=== PATIENT | female | born 1975 | race Caucasian/White ===

== ENCOUNTER → 2020-11-27 14:02 | Outpatient (CLI) | payer BC, SELFPAY ==
--- NOTE | 2020-11-28 09:16 | PC.NURSE ---
spoke with pts to relay she is covid positive.
== END ==
PROVIDERS: PCP Family Medicine; Visit Provider Family Medicine
DX: Z01.818 Encounter for other preprocedural examination (principal); Z11.52 Encounter for screening for COVID-19; U07.1 COVID-19
CPT/HCPCS: U0003

== ENCOUNTER 2022-03-17 10:24 | Emergency (ER) | payer BC, OTHER, SELFPAY ==
[2022-03-17] VITALS (13 sets, daily range): BP systolic 113–147; BP diastolic 74–100; PULSE 60–75; RESP 16–18; TEMP 36.6–36.8; O2SAT 98–99; BMI 23.3
--- NOTE | 2022-03-17 10:45 | XR_ITS ---
FINAL REPORT CLINICAL HISTORY: sob FINDINGS: SINGLE-VIEW CHEST The heart size is normal. The mediastinum is normal. The lungs are clear. There is no pneumothorax. IMPRESSION: No acute cardiopulmonary process. Reviewed, Interpreted and Dictated by Alexander Shaw III, MD Transcribed by Shakira Bacon Authenticated and [facility]
--- NOTE | 2022-03-17 10:47 | PC.NURSE ---
pt to the restroom
--- NOTE | 2022-03-17 10:51 | HMH.EDGENADL ---
ED Disposition Clinical Impression: Hypothyroidism Qualifiers: Hypothyroidism type: unspecified Qualified Code(s): E03.9 - Hypothyroidism, unspecified Disposition: Home, Self-Care Condition on Discharge: Good Instructions: DI for Hypothyroidism Referrals: Kimberly Conti [Primary Care Provider] - - Critical Care Critical Care Time: No Attestation: On 03/17/22, the high probability of a clinically significant, sudden or life threatening deterioration of the following system(s) required my full and direct attention, intervention and personal management. The time I documented below is in addition to time spent performing reported procedures but includes the following listed in this critical care notation. Medical Decision Making - Medical Records Medical records reviewed: Yes: I reviewed the patient's medical records. - Vasquez Inquiry Pt receiving controlled substance: No Vital Signs: 03/17/22 10:26 03/17/22 10:51 03/17/22 10:52 Temperature 98.3 F Temperature Source Oral Pulse Rate 70 63 Pulse Rate [Radial] 75 Respiratory Rate 16 18 18 Blood Pressure 139/93 H 125/88 Blood Pressure [Right Arm] 147/94 H Blood Pressure Mean 108 107 Blood Pressure Mean [Right Arm] 111 Blood Pressure Position [Right Arm] Sitting 02 Sat by Pulse Oximetry 98 99 98 Oxygen Delivery Method Room Air 03/17/22 11:02 03/17/22 11:12 03/17/22 11:22 Temperature Temperature Source Pulse Rate 68 69 60 Pulse Rate [Radial] Respiratory Rate 18 Blood Pressure 113/82 123/77 114/83 Blood Pressure [Right Arm] Blood Pressure Mean 96 86 95 Blood Pressure Mean [Right Arm] Blood Pressure Position [Right Arm] 02 Sat by Pulse Oximetry 99 99 98 Oxygen Delivery Method 03/17/22 11:42 03/17/22 12:02 03/17/22 12:12 Temperature Temperature Source Pulse Rate 63 75 75 Pulse Rate [Radial] Respiratory Rate 18 18 18 Blood Pressure 115/86 133/100 H 119/85 Blood Pressure [Right Arm] Blood Pressure Mean 93 111 97 Blood Pressure Mean [Right Arm] Blood Pressure Position [Right Arm] 02 Sat by Pulse Oximetry 98 98 99 Oxygen Delivery Method 03/17/22 12:22 Temperature Temperature Source Pulse Rate 73 Pulse Rate [Radial] Respiratory Rate 18 Blood Pressure 128/91 H Blood Pressure [Right Arm] Blood Pressure Mean 100 Blood Pressure Mean [Right Arm] Blood Pressure Position [Right Arm] 02 Sat by Pulse Oximetry 99 Oxygen Delivery Method - Lab Data Lab Results 03/17/22 11:01: SARS-CoV-2 (PCR) Not detected, Influenza A Untype (PCR) Not detected, Influenza Type B (PCR) Not detected 03/17/22 11:10: WBC 5.1, RBC 4.68, Hgb 14.3, Hct 43.0, MCV 91.8, MCH 30.6, MCHC 33.3, RDW 14.4, Plt Count 327, MPV 7.2 L, Neut % (Auto) 66.9, Lymph % (Auto) 23.2, [place] % (Auto) 4.6, Eos % (Auto) 3.9, Baso % (Auto) 1.4, Neut # (Auto) 3.4, Lymph # (Auto) 1.2, [place] # (Auto) 0.2, Eos # (Auto) 0.2, Baso # (Auto) 0.1 03/17/22 11:10: Sodium 136, Potassium 4.0, Chloride 101, Carbon Dioxide 29, Anion Gap 10.0, BUN 12, Creatinine 1.00, Estimated Creat Clear 70, Estimated GFR 60, Est GFR ( Amer) 72, Glucose 107 H, Calcium 9.7, Troponin I < 0.01, TSH 134.00 H Result diagrams: 03/17/22 11:10 03/17/22 11:10 Orders (Tests/Meds): ED MEDICATIONS Discontinued Medications Generic Name Dose Route Start Last Admin Trade Name Freq PRN Reason Stop Dose Admin Dexamethasone Sodium Phosphate 10 mg 03/17/22 12:17 03/17/22 12:29 Dexamethasone 4mg/Ml 5ml Mdv IV 03/17/22 12:18 10 mg ONCE ONE Administration Levothyroxine Sodium 100 mcg 03/17/22 12:46 Levothyroxine Sodium 100 Mcg Vial IV 03/17/22 12:47 ONCE STA ORDERS Category Date Time Status Free T4 (Free Thyroxine) Stat Lab 03/17/22 11:10 Received T4 (Thyroxine) Stat Lab 03/17/22 11:10 Received Thyroid Panel Stat Lab 03/17/22 11:10 Received Troponin I Q3H Lab 03/17/22 13:45 Ordered Troponin I Q3H Lab 03/17/22 16:45 Ordere
--- NOTE | 2022-03-17 11:05 | PC.NURSE ---
pt given ice water; okay's per ER and a warm blanket. Covid swab obtained and sent to lab. She has no other needs at this time. Family at BS has no needs at this time as well.
[2022-03-17 11:08] LABS: Coronavirus 19, PCR Not Detected (NotDetected); Influenza A, PCR Not Detected (NotDetected); Influenza B, PCR Not Detected (NotDetected)
[2022-03-17 11:32] LABS: Basophils # 0.1 K/mm3 (0-0.2); Basophils % 1.4 % (0.1-2.0); Eosinophils # 0.2 K/mm3 (0.0-0.4); Eosinophils % 3.9 % (0.1-12.0); Hemoglobin 14.3 g/dL (12.2-16.2); Lymphocytes # 1.2 K/mm3 (0.7-4.5); Lymphocytes % 23.2 % (10-50); Mean Corpuscular HGB Conc 33.3 g/dL (31.8-35.4); Mean Corpuscular Hemoglobin 30.6 pg (27.0-31.2); Mean Corpuscular Volume 91.8 fl (81-99); Mean Platelet Volume 7.2 fl (7.4-10.4); Monocytes # 0.2 K/mm3 (0.1-1.0); Monocytes % 4.6 % (1.7-9.3); Neutrophils # 3.4 K/mm3 (1.8-7.8); Neutrophils % 66.9 % (37.0-80.0); Platelet Count 327 K/mm3 (142-424); Red Blood Count 4.68 M/mm3 (4.20-5.40); Red Cell Distribution Width 14.4 % (11.5-17.5); White Blood Count 5.1 K/mm3 (4.8-10.8)
[2022-03-17 11:36] LABS: Chloride 101 mmol/L (98-107); Sodium 136 mmol/L (136-145)
[2022-03-17 11:39] LABS: Blood Urea Nitrogen 12 mg/dl (7-17); Calcium 9.7 mg/dl (8.4-10.2); Carbon Dioxide 29 mmol/L (22.0-30.0); Creatinine Clearance Estimated 70 mL/min (50-200); Estimated Glomerular Filt Rate 60 ml/min (>60); GFR (African American) 72 ML/MIN (>60); Glucose 107 mg/dl (74-100)
[2022-03-17 11:52] LABS: Troponin I < 0.01 ng/ml (0.00-0.034)
--- NOTE | 2022-03-17 12:00 | PC.NURSE ---
AT BEDSIDE OFFERS NO C/O AT PRESENT
--- NOTE | 2022-03-17 12:01 | PC.NURSE ---
contacted lab to check on status of tsh result, lab staff states has approx 10 minutes left
--- NOTE | 2022-03-17 12:15 | PC.NURSE ---
ER MD at speaking with patient regarding update on POC
--- NOTE | 2022-03-17 12:40 | PC.NURSE ---
Spoke with Eloy in lab regarding TSH not being resulted yet and she reports, it was so high that we have to re-run it so it will be another 15 mins. ER updated.
--- NOTE | 2022-03-17 12:54 | PC.NURSE ---
rounded on pt at this time, family at Bs, pt sitting up in bed. Updated pt that MARIA TERESA OSORIO has added additional lab work based on results we have received thus far and that I will have ER update pt soon and findings. Pt states no needs at this time. Will continue to monitor
[2022-03-17 13:20] LABS: T4 (Thyroxine) 4.2 ug/dl (5.53-11.0)
[2022-03-17 13:21] LABS: Free Thyroxine Index 1.1 ug/dL (5.93-13.13); T4 (Thyroxine) 4.1 ug/dl (5.53-11.0); Triiodothryronine (T3) Uptake 26 % (23.5-40.5)
[2022-03-17 13:22] LABS: Free T4 (Free Thyroxine) 0.39 ng/dl (0.78-2.19)
== END 2022-03-17 13:33 | disposition home or self-care (01) ==
PROVIDERS: Emergency Provider Emergency Medicine; PCP Family Medicine
DX: E03.9 Hypothyroidism, unspecified (principal); R07.89 Other chest pain; R06.02 Shortness of breath; R53.1 Weakness
CPT/HCPCS: 71045; 80048; 84436; 84439; 84443; 84479; 84484; 85025; 93005; 99284; C9803; U0003; U0005

== ENCOUNTER → 2022-11-28 13:51 | Outpatient (POV) | payer BC, OTHER, SELFPAY ==
[2022-11-28 14:48] VITALS: BP 145/89; PULSE 98; RESP 18; O2SAT 97; BMI 22.4
--- NOTE | 2022-11-28 14:51 | EXP.PAIN.OV ---
HPI Data of Consult Patient: new to practice Consult date: 11/28/22 Requesting Physician: Erika Lopez APRN Primary Care Provider: Kimberly Conti Consult Narrative Reason for consult: Right-sided low back pain History of present illness: Ms. Allen is a 47 year old female who presents today as a new patient. She is a referral from Dr. Ortiz office. Today she rates her pain a 7 out of 10. Patient states her pain is all in her low back along the right side and going into her right hip. She describes this as a aching sensation that is worse with increased activity. She states this has been going on since May 2022 and has progressively worsened patient cannot tolerate prolonged standing or walking due to her pain. It does affect her ability to perform activities of daily living such as cooking and cleaning. Patient states she is very active however she has been very limited over the last several months due to her worsening pain symptoms. Patient states it is affecting her ability to sleep and frequently she has to change positions multiple times during the night. Patient states she does have a history of sacroiliitis with her last injection approximately 5 years ago. Patient states that she did have significant relief and did not have to have any additional interventions after that last injection. Patient states that she has tried [id number]-zag-[id number] ibuprofen and Tylenol with no additional improvement. Patient does use a heating pad and hot tub therapy on a daily basis to provide temporary relief. Patient has tried oljq-pnm-stucuau topicals such as Voltaren, Aspercreme and Biofreeze with no additional relief. Patient was prescribed diclofenac in the past however she states she had been on this for some time and it made no additional difference and was worsening her GI issues so she discontinued use. Patient does states she has a history of GERD, IBS, fibromyalgia and recently was diagnosed with systemic sclerosis. Patient states she has been to rheumatology in the past. She states she has also been to physical therapy including dry needling and pool therapy with no additional improvement. 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 Patient is currently prescribed Ambien 10 mg daily and has had tramadol 50 mg 3 times a day in the past by her primary care doctor. Patient denies any side effects from this medication. Her Vasquez is [id number]. Its been reviewed and appropriate. CC: Erika Lopez APRN [facility] Disclaimer: The information contained in this section may have been updated after the patient was seen, as this information can be updated by other users. Medical History (Updated 11/28/22 @ 15:06 by Erika Lopez APRN) Anxiety Fibromyalgia GERD (gastroesophageal reflux disease) HLD (hyperlipidemia) HTN (hypertension) Hypothyroidism Migraines Vitamin D deficiency Surgical History (Updated 11/28/22 @ 14:08 by Radha Sanches RN) H/O: H/O: hysterectomy Hx of cholecystectomy Family History (Updated 11/28/22 @ 14:08 by Radha Sanches RN) Other Afib Coronary artery disease Hyperlipidemia Hypothyroidism Social History (Updated 11/28/22 @ 14:48 by Radha Sanches RN) Smoking Status: Never smoker alcohol intake: never current occupational status: other Travel in the last 8 weeks: None Review of Systems Review of Systems Review of systems:: pertinent systems reviewed and negative unless documented below Review of systems (narrative): Review of Systems: General: No recent weight changes, no fever, no sleep disturbances Respiratory: No cough, no shortness of air, no recurring pulmonary infections Cardiovascular/peripheral vascular: No chest pain, no palpitations, no edema, no shortness of breath Gastrointestinal: No new onset incontinence, normal bowel movements
== END ==
PROVIDERS: PCP Family Medicine; Visit Provider Nurse Practitioner Family
DX: M51.16 Intervertebral disc disorders with radiculopathy, lumbar region (principal); M46.1 Sacroiliitis, not elsewhere classified
CPT/HCPCS: 99202; G0463

== ENCOUNTER 2022-12-06 11:02 | Day surgery (SDC) | payer BC, OTHER, SELFPAY ==
[2022-12-06 11:19] VITALS: BP 121/77; PULSE 77; RESP 18; TEMP 36.3; O2SAT 100; BMI 22.4
[2022-12-06 11:30] VITALS: BP 118/73; PULSE 83; RESP 18; O2SAT 97
[2022-12-06 11:32] VITALS: BP 109/78; PULSE 65; RESP 18; O2SAT 100
--- NOTE | 2022-12-06 11:32 | EXP.PAIN.PRO ---
Procedure Date: 12/06/22 Time: 11:28 Anesthesiologist:: Stef Carmichael CRNA Complications:: None Pre-procedure Diagnosis:: Right sacroiliitis Post-procedure Diagnosis:: Same Indications for Procedure:: Patient is a very pleasant 47-year-old female that comes our clinic today for right sacroiliac joint injection. She has extreme point tenderness over the right sacroiliac joint. She rates her pain 7/10 Procedure Details:: Procedure: Right sacroliliac joint injection under fluoroscopy Informed consent was obtained and the risk and benefits of the procedure were explained to the patient.~ The patient was taken to the procedure room and noninvasive monitors were placed including noninvasive blood pressure cuff and pulse oximeter.~ The patient was placed prone on the procedure table.~ The~ right hip was cleansed using Betadine as a cleansing solution.~ C-arm fluorosocpy was used to view the right SI joint.~ The skin and subcutaneous tissues were anesthetized using Lidocaine 1.5% and a 25-gauge needle.~ After this, a 22-gauge spinal needle was inserted under fluoroscopic guidance into the inferior aspect of the right SI joint.~ Omnipaque dye was injected and a good spread was seen throughout the joint.~ After this, approximately 5 mL of bupivacaine 0.25% and Depo-Medrol 40 mg was incrementally injected into the sacroiliac joint.~ The patient tolerated the procedure well with no complications.~ The patient was observed in the Pain Clinic, then discharged home neurologically intact.~ Plan and Disposition:: Patient was discharged without incident.
== END 2022-12-06 11:32 | disposition home or self-care (01) ==
PROVIDERS: PCP Family Medicine; Visit Provider Nurse Anesthetist, Certified Registered
DX: M46.1 Sacroiliitis, not elsewhere classified (principal)
CPT/HCPCS: 27096; G0260; J1040

== ENCOUNTER → 2022-12-30 08:29 | Outpatient (POV) | payer BC, OTHER, SELFPAY ==
--- NOTE | 2022-12-30 08:46 | EXP.PAIN.SOA ---
[facility] Pain Management SOAP Note Subjective:: Patient is a pleasant 47-year-old female who presents today for follow-up of right SI injection on 12/06/2022. We are currently treating the patient for low back pain, degenerative disc disease of lumbar spine with lumbar radiculopathy symptoms and sacroiliitis. Today she rates her pain a 6 out of 10. She states following this injection she did not notice significant improvement until about a week and a half in where she had 2 full days of waking up with no pain in comparison prior to the injection. Patient does state that she has been walking more however she still cannot tolerate prolonged sitting or standing due to her worsening pain symptoms. She does feel like that she is back to her baseline at today's visit. Patient is currently managed with Ambien 10 mg daily and tramadol 50 mg 3 times a day from her primary care doctor. Patient denies any side effects from these medications. We have also prescribed her compounding cream that she did state provided significant relief although short-term. Her Vasquez is [phone]. Its been reviewed and appropriate. Review of Systems: General: No recent weight changes, no fever, no sleep disturbances Respiratory: No cough, no shortness of air, no recurring pulmonary infections Cardiovascular/peripheral vascular: No chest pain, no palpitations, no edema, no shortness of breath Gastrointestinal: No new onset incontinence, normal bowel movements reported Genitourinary: No new onset incontinence Musculoskeletal: Low back pain Psychiatric: [Normal mood/affect] Neurological: [Denies weakness in extremities], [denies balance issues] Objective:: Physical Exam: General: Alert and oriented x3, no acute distress, pleasant and cooperative Lungs: Respirations even and unlabored, symmetrical chest expansion Eyes: PERRL Musculoskeletal: Flexion and extension of lumbar [spine] somewhat guarded secondary to pain, [antalgic gait noted] Neurological: Speech clear, no gross sensory deficit Assessment:: Degenerative disc disease of lumbar spine with lumbar radiculopathy symptoms, sacroiliitis, low back pain Plan:: Patient continues to experience significant pain in her back with limited range of motion. I will order her physical therapy at today's visit and also prescribe tizanidine 4 mg at bedtime and provide a 1 month supply of this medication. Patient will return to clinic in 1 month for reevaluation of symptoms possible medication refill if indicated and follow-up. Patient has been instructed to contact the clinic with any concerns before the next appointment. Dr. Morales has reviewed this note and agrees with this plan of care. This note was dictated using voice recognition software and make contain errors or omissions. [facility] Disclaimer: The information contained in this section may have been updated after the patient was seen, as this information can be updated by other users. Medical History Anxiety Fibromyalgia GERD (gastroesophageal reflux disease) HLD (hyperlipidemia) HTN (hypertension) Hypothyroidism Migraines Vitamin D deficiency Surgical History H/O: H/O: hysterectomy Hx of cholecystectomy Family History Other Afib Coronary artery disease Hyperlipidemia Hypothyroidism Social History Smoking Status: Never smoker alcohol intake: never current occupational status: other Travel in the last 8 weeks: None
[2022-12-30 08:48] VITALS: BP 130/88; PULSE 99; RESP 18; O2SAT 98; BMI 22.4
== END | disposition home or self-care (01) ==
PROVIDERS: PCP Family Medicine; Visit Provider Nurse Practitioner Family
DX: M51.16 Intervertebral disc disorders with radiculopathy, lumbar region (principal); M46.1 Sacroiliitis, not elsewhere classified
CPT/HCPCS: 99212; G0463

== ENCOUNTER → 2023-02-06 08:53 | Outpatient (POV) | payer BC, OTHER, SELFPAY ==
--- NOTE | 2023-02-06 08:59 | EXP.PAIN.SOA ---
[facility] Pain Management SOAP Note Subjective:: Patient is a pleasant 47-year-old female who presents today for follow-up.? We are currently treating the patient for low back pain, degenerative disc disease of lumbar spine with lumbar radiculopathy symptoms and sacroiliitis.? Today she rates her pain a 3 out of 10.? She states that her pain continues to be at her low back however the last couple of weeks she has been experiencing worsening neck pain. She does describe this as a aching sensation that is worse with increased activity. She does stay very tense in her shoulders and also has a history of chronic migraines. She states that she does take injections for her migraines that does provide additional relief. Patient does state that her pain interferes with her ability perform activities of daily living such as cooking and cleaning. Patient is currently in physical therapy and does believe this is helping with some of her back related issues. Patient denies any previous cervical imaging and states that she has not gotten any additional imaging of her lumbar spine aside from the previous x-ray. Patient is currently managed with Ambien 10 mg daily and tramadol 50 mg 3 times a day from her primary care doctor.? Patient denies any side effects from these medications.? We did prescribe the patient tizanidine at her last visit however she states it did make her feel queasy and sick to her stomach and discontinued this medication. She does state that she is scheduled for a visit to the sleep doctor for possible sleep apnea this week. We have also prescribed her compounding cream that she did help additionally.? Her Vasquez is [id number].? Its been reviewed and appropriate. Review of Systems: General: No recent weight changes, no fever, no sleep disturbances Respiratory: No cough, no shortness of air, no recurring pulmonary infections Cardiovascular/peripheral vascular: No chest pain, no palpitations,? no edema, no shortness of breath Gastrointestinal: No new onset incontinence, normal bowel movements reported Genitourinary: No new onset incontinence Musculoskeletal: Neck and shoulder pain Psychiatric: [Normal mood/affect] Neurological: [Denies weakness in extremities], [denies balance issues] Objective:: Physical Exam: General: Alert and oriented x3, no acute distress, pleasant and cooperative Lungs: Respirations even and unlabored, symmetrical chest expansion Eyes: PERRL Musculoskeletal: Flexion and extension of cervical [spine] somewhat guarded secondary to pain, [antalgic gait noted] extreme point tenderness noted at bilateral cervical paraspinous and bilateral trapezius muscles Neurological: Speech clear, no gross sensory deficit Assessment:: Degenerative disc disease of lumbar spine with lumbar radiculopathy symptoms, low back pain, sacroiliitis, neck pain with cervical radiculopathy symptoms, myofascial pain of bilateral cervical paraspinous and bilateral trapezius muscles Plan:: Patient is experiencing significant pain in her neck with extreme point tenderness along her bilateral cervical paraspinous and bilateral trapezius muscles. I have discussed with the patient that she may benefit from trigger point injections at these locations. Risk and benefits were discussed with the patient and she would like to proceed forward with this plan of care. We will schedule the patient for trigger point injections of her bilateral cervical paraspinous and bilateral trapezius. I will also order lumbar MRI imaging without contrast. Patient has been instructed to contact the clinic with any concerns before the next appointment. Dr. Morales has reviewed this note and agrees with this plan of care. This note was dictated using voice recognition software and make contain errors or omissions. [facility] Disclaimer: The information contained in this section may have been updated after the patient was seen, as this information can be updated by other users. Medical History (System 0
[2023-02-06 09:27] VITALS: BP 149/91; PULSE 84; RESP 18; O2SAT 98; BMI 22.4
== END ==
PROVIDERS: PCP Family Medicine; Visit Provider Nurse Practitioner Family
DX: M51.16 Intervertebral disc disorders with radiculopathy, lumbar region (principal); M50.10 Cervical disc disorder with radiculopathy, unspecified cervical region; M46.1 Sacroiliitis, not elsewhere classified; M79.18 Myalgia, other site
CPT/HCPCS: 99212; G0463

== ENCOUNTER 2023-02-14 08:58 | Day surgery (SDC) | payer BC, OTHER, SELFPAY ==
[2023-02-14 09:07] VITALS: BP 136/86; PULSE 91; RESP 16; TEMP 36.2; O2SAT 98; BMI 21.6
[2023-02-14 09:24] VITALS: BP 133/86; PULSE 72; RESP 16; O2SAT 98
--- NOTE | 2023-02-14 09:31 | P.PCN_ITS ---
Procedure Date: 02/14/23 Time: 09:00 Anesthesiologist:: Stef Carmichael CRNA Complications:: None Pre-procedure Diagnosis:: Myofascial pain bilateral trapezius muscle. Post-procedure Diagnosis:: Same. Indications for Procedure:: Patient is a pleasant 47-year-old female comes our clinic today for bilateral trapezius trigger point injections. Patient complains of tightness and aching across the bilateral trapezius muscles. She rates her pain 7/10. Patient discussed with me this morning regarding her low back pain that she describes as constant, dull, aching. Patient is scheduled for lumbar MRI on 02/16/2023. Patient had bilateral sacroiliac joint injections 2 months ago. She reports leaving the office after the procedure with no pain. However, after the local anesthesia wore off her pain returned in its entirety. I discussed in detail with her risk and benefits of repeating the bilateral sacroiliac joint injections. She wishes to proceed. Procedure Details:: Details of the procedure explained to the patient. The patient taken procedure room placed in the sitting position. The area over the bilateral trapezius muscle was cleansed using chlorhexidine as a cleansing solution. Using a 25- gauge needle 2 separate injections were given into the right trapezius muscle after negative aspiration. 3 cc of a solution containing 0.25% Marcaine +1% lidocaine and 40 mg of Depo-Medrol was injected into each area. The same pro cedure was carried out over the left trapezius muscle. Patient tolerated procedure without difficulty. There are no complications. Plan and Disposition:: Patient was discharged without incident.
== END 2023-02-14 09:24 | disposition home or self-care (01) ==
LOC: SC.PAINP 08:59
PROVIDERS: PCP Family Medicine; Visit Provider Nurse Anesthetist, Certified Registered
DX: M79.18 Myalgia, other site (principal)
CPT/HCPCS: 20552; J1040

== ENCOUNTER → 2023-02-16 14:04 | Outpatient (CLI) | payer BC, OTHER, SELFPAY ==
--- NOTE | 2023-02-16 14:06 | MR_ITS ---
FINAL REPORT CLINICAL HISTORY: CHRONIC LBP DOWN RIGHT LEG SINCE MAY 2022 FINDINGS: Multiplanar MR imaging of the lumbar spine was performed without contrast. On the sagittal T2-weighted images, there is abnormal decreased signal at L4-5. The vertebrae are of normal height. The vertebral alignment is normal. L1-2: There is no significant canal stenosis or neural foraminal narrowing. L2-3: There is no significant canal stenosis or neural foraminal narrowing. L3-4: There is no significant canal stenosis or neural foraminal narrowing. L4-5: Mild diffuse disc bulge is present with mild bilateral neural foraminal narrowing, right greater than left. L5-S1: There is no significant canal stenosis or neural foraminal narrowing. IMPRESSION: Diffuse disc bulge at L4-5 with mild bilateral neural foraminal narrowing. Reviewed, Interpreted and Dictated by Ko Dumont MD Transcribed by Shakira Bacon Authenticated and [facility]
== END ==
PROVIDERS: PCP Family Medicine; Visit Provider Nurse Practitioner Family
DX: M54.50 Low back pain, unspecified (principal)
CPT/HCPCS: 72148; 76376

== ENCOUNTER 2023-02-21 13:23 | Day surgery (SDC) | payer BC, OTHER, SELFPAY ==
[2023-02-21 13:41] VITALS: BP 115/73; PULSE 52; RESP 18; TEMP 36.4; O2SAT 97; BMI 21.6
[2023-02-21 13:55] VITALS: BP 139/83; PULSE 78; RESP 18; O2SAT 99
[2023-02-21 13:56] VITALS: BP 139/83; PULSE 78; RESP 18; O2SAT 99
[2023-02-21 14:10] VITALS: BP 139/88; PULSE 66; RESP 18; O2SAT 97
--- NOTE | 2023-02-21 14:14 | P.PCN_ITS ---
Procedure Date: 02/21/23 Time: 14:00 Anesthesiologist:: Stef Carmichael CRNA Complications:: None Pre-procedure Diagnosis:: Bilateral sacroiliitis. Degenerative disc disease multiple levels. Lumbar radiculopathy. Disc bulge with foraminal narrowing bilaterally L4-5. Post-procedure Diagnosis:: Same. Indications for Procedure:: Patient returns for a second round of bilateral sacroiliac joint injections. She received 30% improvement in her overall low back pain as well as bilateral hip and leg radicular symptoms with her first round of bilateral sacroiliac joint injections. I think is reasonable to try another round of bilateral sacroiliac joint injections. She does have point tenderness over the bilateral sacroiliac joints. I discussed in detail with the patient regarding her pain. Her MRI from 02/17/2023 reveals diffuse disc bulge L4-5 with bilateral neuroforaminal narrowing right greater than left. Patient's pain pattern is low lumbar with right greater than left radicular symptoms. Patient states pain increases significantly when sitting for any length of time. Ambulating does not render any excess pain. I discussed in detail with her regarding lumbar epidural steroid injection at the L4-5 level. This could bring her some significant improvement if in fact she does not receive improvement today from the bilateral sacroiliac joint injections. We will set the patient up for lumbar epidural steroid injection in the near future. If in fact it is needed. Procedure Details:: Procedure: Bilateral sacroiliac joint injections under fluoroscopy Informed consent was obtained and the risks and benefits of the procedure were explained to the patient.~ The patient was taken to the procedure room and noninvasive monitors were placed including a noninvasive blood pressure cuff and pulse oximeter.~ The patient was placed prone on the procedure table. Both hips were cleansed using Betadine as a cleansing solution. C-arm fluoroscopy was used to view the right sacroiliac joint.~ The skin and subcutaneous tissues were anesthetized using lidocaine 1.5% and a 25-gauge needle.~ After this, a 22-gauge spinal needle was inserted under fluoroscopic guidance into the inferior aspect of the right sacroiliac joint.~ Omnipaque dye was injected and good spread was seen throughout the joint.~ After this, approximately 5 mL of bupivacaine, 0.25% and Depo-Medrol, 40 mg was incrementally injected into the right sacroiliac joint. We then moved to the left sacroiliac joint.~ The skin and subcutaneous tissues were anesthetized using lidocaine 1.5% and a 25-gauge needle.~ After this, a 22- gauge spinal needle was inserted under fluoroscopic guidance into the inferior aspect of the left sacroiliac joint.~ Omnipaque dye was injected and good spread was seen throughout the joint. After this, approximately 5 mL of bupivacaine, 0.25% and Depo-Medrol, 40 mg was incrementally injected into the left sacroiliac joint.~ The patient tolerated the procedure well with no complications. The patient was observed in the Pain Clinic and then was discharged home neurologically intact. Plan and Disposition:: Patient was discharged without incident.
== END 2023-02-21 14:10 | disposition home or self-care (01) ==
LOC: SC.PAINP 13:27
PROVIDERS: PCP Family Medicine; Visit Provider Nurse Anesthetist, Certified Registered
DX: M46.1 Sacroiliitis, not elsewhere classified (principal); M51.16 Intervertebral disc disorders with radiculopathy, lumbar region
CPT/HCPCS: 27096; G0260; J1040

== ENCOUNTER 2023-03-07 14:01 | Day surgery (SDC) | payer BC, OTHER, SELFPAY ==
[2023-03-07 14:20] VITALS: BP 111/71; PULSE 76; RESP 18; TEMP 36.3; O2SAT 100; BMI 21.6
--- NOTE | 2023-03-07 14:33 | EXP.PAIN.PRO ---
Procedure Date: 03/07/23 Time: 14:30 Anesthesiologist:: Stef Carmichael CRNA Complications:: None Pre-procedure Diagnosis:: Degenerative disc lumbar spine multilevels. Lumbar radiculopathy. Disc bulge with foraminal narrowing bilaterally L4-5. Post-procedure Diagnosis:: Same. Indications for Procedure:: Patient is a pleasant 48-year-old female comes our clinic today for lumbar epidural steroid injection at L4-5 level. Patient has had trigger point injections in the lumbar paraspinous muscles as well as bilateral sacroiliac joint injections. Neither injection rendered much relief. I discussed in detail with her today regarding the lumbar epidural steroid injection and what to expect. She wishes to proceed. She rates her pain 7/10. She describes her low back pain as well as bilateral hip pain as constant, dull, aching. Procedure Details:: Procedure: Lumbar epidural steroid injection under fluoroscopy Informed consent was obtained and the risks and benefits of the procedure were explained to the patient. The patient was taken to the procedure room and noninvasive monitors placed, including noninvasive blood pressure cuff and pulse oximeter. The back was viewed using C-arm Fluoroscopy and prepped using Chloraprep as a cleansing solution and the L4-L5 interspace was palpated. Skin and subcutaneous tissues were anesthetized using lidocaine 1.5% and a 25-gauge needle. After this, an 18-gauge Touhy epidural needle was placed into the L4-L5 interspace and advanced using fluoroscopic guidance and loss of resistance to air until the epidural space was encountered. After confirmation of needle placement in the epidural space, with dye, a solution containing normal saline, 3 mL and Depo-Medrol 80 mg were incrementally injected into the lumbar epidural space. The patient tolerated the procedure well with no complications. The patient was observed in the Pain Clinic and then discharged home neurologically intact. Plan and Disposition:: Patient was discharged without incident.
[2023-03-07 14:35] VITALS: BP 129/77; PULSE 70; RESP 18; O2SAT 99
[2023-03-07 14:37] VITALS: BP 129/77; PULSE 70; RESP 18; O2SAT 99
[2023-03-07 14:40] VITALS: BP 117/74; PULSE 67; RESP 18; O2SAT 100
== END 2023-03-07 14:40 | disposition home or self-care (01) ==
PROVIDERS: PCP Family Medicine; Visit Provider Nurse Anesthetist, Certified Registered
DX: M51.16 Intervertebral disc disorders with radiculopathy, lumbar region (principal)
CPT/HCPCS: 62323; J1040

== ENCOUNTER 2023-03-16 16:30 | Outpatient (RCR) | payer BC, OTHER, SELFPAY ==
--- NOTE | 2023-01-06 12:12 | HMH.PTOPEV ---
PT Outpatient Evaluation Rehab PT Outpatient Evaluation Start: 01/06/23 11:36 Freq: Status: Active Protocol: Document 01/06/23 11:36 RIAZ (Rec: 01/06/23 12:12 RIAZ [id number]) E-signed By Luis Loomis, PT Outpatient Therapy Subjective History Subjective History Patient is a 47 year old female presenting to outpatient PT with reports of chronic LBP with most recent exacerbation starting approx 1 month ago of insidious onset. Patient reports hx of fibromyalgia. Multiple episodes of PT previously that provided minimal relief. Intermittent RLE radicular symptoms noted. Comorbidities include hx of scleroderma, hypothyroidism, migraines, HL and reny. Chief Complaint Pain,Stiff Symptom Type Ache Symptoms Relieved By Rest/Positioning,Activity Prior Functional Limitations None Current Functional Limitations Lifting,Housework,Sleeping, Standing,Sitting,Squatting, Recreation Activity,Walking, Bending/Stooping Symptom Description Intermittent Level of pain today (0-10) 5 Pain scale - at its best (0-10) 0 Pain scale - at its worst (0-10) 7 Lumbopelvic Eval Posture Thoracic Spine Posture Standing Position Neutral Lumbar Spine Posture Standing Position Neutral Assistive device Assistive Devices None / NA Palapation tenderness right Lumbar/Sacral Palpation Findings Tenderness Lumbar/Sacral Palpation Overall Comment R SIJ 3/4 Accessory Movement S1 right Range of Motion Lumbar Spine Active Flexion Range of WNL Motion (degrees) Lumbar Spine Active Extension Range of 21 pain Motion (degrees) Left Lumbar Spine Lateral Flexion Active 15 Range of Motion (degrees) Right Lumbar Spine Lateral Flexion 12 Active Range of Motion (degrees) Lumbar Spine ROM Limitations Soft Tissue Tightness Manual Muscle Test Bilateral Knee Extension Strength Grade 4 Good Knee Flexion Strength Grade 4 Good Hip Flexion Strength Grade 4 Good Extensor Hallucis Longus Strength Grade 4 Good Ankle Dorsiflexion Strength Grade 4 Good Gastronemius/Soleus Strength Grade 4 Good Altered Sensation Right LE Dermatome Level S1 Comment ache Special Tests Hip Stef (ALMA) Test Positive Left,Positive Right
--- NOTE | 2023-02-08 16:00 | HMH.RHREAS ---
Rehab Reassessment Rehab OP Re-assessment Start: 02/08/23 15:49 Freq: Status: Active Protocol: Document 02/08/23 15:55 RIAZ (Rec: 02/08/23 16:00 RIAZ [id number]) E-signed By Luis Loomis, PT Rehab Re-assessment Subjective Subjective Patient reports 30% improvement since start of care. Objective Objective Notes AROM: WFL MMT: 4+/5 BLE grossly Pain: 3/10 today; 6/10 at worst over past week Walking/sitting tolerance: 30 min Assessment Progress Assessment Progressing as Expected Assessment Notes Compliance noted with HEP. Overall decreased F,I and D of symptoms noted. Persistent difficulty and inc symptoms with prolonged sitting, walking, bending and lifting. Patient would benenfit from continuing with skilled PT services in order to address these functional limitations. Patient goals met STG 2 Goals Not Met All others Revised Goals NA Plan Plan Continue with current POC. Frequency of Therapy 2x/week Duration of therapy 4 weeks Time and Billing Re-Eval Time 16 Re-Eval Billing Units 1 PHYSICIAN CERTIFICATION: I certify the specified therapy services for Ramandeep Allen are required, authorized, and reviewed every 30 days.
== END 2023-03-16 16:35 | disposition home or self-care (01) ==
LOC: PT 16:30
PROVIDERS: PCP Family Medicine; Visit Provider Nurse Practitioner Family
DX: M54.50 Low back pain, unspecified (principal)
CPT/HCPCS: 20561; 97010; 97014; 97110; 97140; 97163; 97164; 97530; G0283

== ENCOUNTER → 2023-03-22 10:27 | Outpatient (POV) | payer BC, OTHER, SELFPAY ==
[2023-03-22 10:32] VITALS: BP 121/81; PULSE 86; RESP 20; BMI 21.6
--- NOTE | 2023-03-22 10:32 | EXP.PAIN.SOA ---
[facility] Pain Management SOAP Note Subjective:: Patient is a pleasant 48-year-old female who presents today for follow-up of lumbar epidural steroid injection L4-L5 on 03/07/2023. We are currently treating the patient for low back pain, degenerative disc disease of lumbar spine with lumbar radiculopathy symptoms, fibromyalgia and sacroiliitis. Today she rates her pain a 5 out of 10. She states she had no additional relief following the epidural and feels like her pain may even be worse. She does state that she has been having some mid back pain that is occurred approximately 3 times when she was doing certain movements or stretching and she denies any radiating symptoms. She continues to have pain in her low back and her right hip down to her right foot. She describes this as a aching sensation that is worse with increased activity. This pain has been going on for more than 9 months and has progressively worsened. It does affect her ability to perform activities of daily living such as cooking and cleaning. She does state the pain interferes with her sleeping as well as the ability to be active. We have tried SI injections and now this epidural that none have really provided significant relief. She has tried [id number] ibuprofen and Tylenol with no additional improvement. She continues to use heating pad and hot tub therapy on a daily basis to provide temporary relief. Patient has tried multiple topicals as well as diclofenac with no additional relief. She was prescribed compounding cream however it had a very sticky consistency that she could not tolerate as well. She has a history of GERD, IBS, fibromyalgia and systemic sclerosis. She does state that she recently was diagnosed with sleep apnea and is trying to adjust to using a CPAP machine at night she has tried physical therapy with no additional relief. Patient is currently prescribed Ambien 10 mg daily and has had tramadol 50 mg 3 times a day in the past by her primary care doctor. Patient denies any side effects from this medication. She states that she has also tried CBD products that did help her sleep a little better. Her Vasquez is [id number]. Its been reviewed and appropriate. Review of Systems: General: No recent weight changes, no fever, no sleep disturbances Respiratory: No cough, no shortness of air, no recurring pulmonary infections Cardiovascular/peripheral vascular: No chest pain, no palpitations, no edema, no shortness of breath Gastrointestinal: No new onset incontinence, normal bowel movements reported Genitourinary: No new onset incontinence Musculoskeletal: Low back pain, mid back pain Psychiatric: [Normal mood/affect] Neurological: [Denies weakness in extremities], [denies balance issues] Objective:: Physical Exam: General: Alert and oriented x3, no acute distress, pleasant and cooperative Lungs: Respirations even and unlabored, symmetrical chest expansion Eyes: PERRL Musculoskeletal: Flexion and extension of lumbar [spine] somewhat guarded secondary to pain, [antalgic gait noted] positive right leg raise, diminished Achilles reflex and decreased sensation to touch along right leg Neurological: Speech clear, no gross sensory deficit Assessment:: Low back pain, degenerative disc disease of lumbar spine with lumbar radiculopathy symptoms, sacroiliitis, mid back pain, fibromyalgia Plan:: Patient is experiencing significant pain in her low back with limited range of motion and radiating symptoms down her right leg. I have discussed with the patient that she may benefit from a right transforaminal epidural steroid injection. Risk and benefits were explained to the patient and she would like to proceed forward with this plan of care. Patient did have diminished Achilles reflex along the right side and decreased sensation to light touch along with a positive right leg raise. Patient has tried nwnp-ksk-gjxqkie medications, heat and ice, topicals, physical therapy, at home stretching and e
== END | disposition home or self-care (01) ==
PROVIDERS: PCP Family Medicine; Visit Provider Nurse Practitioner Family
DX: M51.16 Intervertebral disc disorders with radiculopathy, lumbar region (principal); M46.1 Sacroiliitis, not elsewhere classified; M54.6 Pain in thoracic spine; M79.7 Fibromyalgia
CPT/HCPCS: 99212; G0463

== ENCOUNTER → 2023-03-22 11:06 | Outpatient (CLI) | payer BC, OTHER, SELFPAY ==
--- NOTE | 2023-03-22 11:11 | XR_ITS ---
FINAL REPORT CLINICAL HISTORY: MID BACK PAIN FINDINGS: THORACIC SPINE Three views demonstrate no acute fracture. The disc spaces are well preserved. There is no malalignment. IMPRESSION: No acute process. Reviewed, Interpreted and Dictated by Harry Fofana MD Transcribed by Rogerio Ace Authenticated and [facility]
== END ==
PROVIDERS: PCP Family Medicine; Visit Provider Nurse Practitioner Family
DX: M54.6 Pain in thoracic spine (principal)
CPT/HCPCS: 72072

== ENCOUNTER → 2023-03-27 08:39 | Outpatient (CLI) | payer BC, OTHER, SELFPAY ==
[2023-03-27 10:31] LABS: Thyroid Stimulating Hormone 0.09 uIU/mL (0.465-4.68)
== END ==
PROVIDERS: PCP Family Medicine; Visit Provider Internal Medicine
DX: E03.8 Other specified hypothyroidism (principal); E06.3 Autoimmune thyroiditis
CPT/HCPCS: 36415; 84439; 84443

== ENCOUNTER → 2023-03-29 07:49 | Outpatient (CLI) | payer BC, OTHER, SELFPAY ==
--- NOTE | 2023-03-29 07:49 | MM_ITS ---
PROCEDURE INFORMATION: Exam: MG Bilateral Screening 3D Mammography Exam date and time: 03/29/2023 7:58 AM Age: 48 years old Clinical indication: Screening examination; No personal or family history of breast cancer TECHNIQUE: Imaging protocol: Bilateral Screening tomosynthesis and 2D mammography including computer-aided detection (CAD) when performed. COMPARISON: No relevant prior studies available. FINDINGS: MAMMOGRAPHY: Breast composition: The breasts are heterogeneously dense, which may obscure small masses. Mass: None. Architectural distortion: None. Calcifications: No suspicious calcifications. Asymmetric density: None. Skin thickening: None. Axillary adenopathy: None. IMPRESSION: No mammographic evidence of malignancy. Annual screening is recommended unless otherwise clinically indicated. ASSESSMENT: BI-RADS Category 1: Negative
== END ==
PROVIDERS: PCP Family Medicine; Visit Provider Obstetrics & Gynecology
DX: Z12.31 Encounter for screening mammogram for malignant neoplasm of breast (principal)
CPT/HCPCS: 77063; 77067

== ENCOUNTER 2023-04-07 13:06 | Day surgery (SDC) | payer BC, OTHER, SELFPAY ==
[2023-04-07 13:24] VITALS: BP 138/83; PULSE 84; RESP 18; TEMP 36.6; O2SAT 100; BMI 21.6
[2023-04-07 13:38] VITALS: BP 138/89; PULSE 84; RESP 18; O2SAT 98
[2023-04-07 13:39] VITALS: BP 138/89; PULSE 84; RESP 18; O2SAT 98
--- NOTE | 2023-04-07 13:44 | P.PCN_ITS ---
Procedure Date: 04/07/23 Time: 13:45 Anesthesiologist:: Stef Carmichael CRNA Complications:: None Pre-procedure Diagnosis:: Degenerative disc lumbar spine multilevels. Lumbar radiculopathy. Lumbar disc bulge L4-5. Thoracic back pain. Post-procedure Diagnosis:: Same. Indications for Procedure:: Patient is a very pleasant 48-year-old female comes our clinic today for right L4-5, L5-S1 transforaminal epidural steroid injection. Patient has had right sacroiliac joint injection. Intralaminar epidural steroid injection at the L4-5 level. Patient continues to report right hip and leg radicular symptoms to the foot. Also, low thoracic back pain she describes as constant, dull, aching. Patient requesting MRI of thoracic spine. Procedure Details:: Details of the procedure were explained to the patient. The patient was taken the procedure room placed in the prone position. The area of the lumbar spine was cleansed using chlorhexidine as a cleansing solution. At this time using fluoroscopy guidance markers were placed on the right lateral border of the L4 and L5 vertebral body. The skin and subcutaneous tissue was anesthetized using 1% lidocaine and 25-gauge needle. At this time using a 22-gauge 3-1/2 inch spinal needle the right upper one third of the L4-5 foramen was accessed. The same was done at the right L5-S1 foramen. Needle positions were confirmed and a lateral view using fluoroscopy and contrast dye. At this time 1 cc of 1% lidocaine +20 mg of Depo-Medrol was injected at each level after negative aspiration. [place] were removed. Band-Aid applied. Patient tolerated the procedure without difficulty. There are no complications. Plan and Disposition:: Patient was discharged without incident.
[2023-04-07 13:47] VITALS: BP 145/91; PULSE 71; RESP 16; O2SAT 100
== END 2023-04-07 13:47 | disposition home or self-care (01) ==
PROVIDERS: PCP Family Medicine; Visit Provider Nurse Anesthetist, Certified Registered
DX: M51.16 Intervertebral disc disorders with radiculopathy, lumbar region (principal); M54.6 Pain in thoracic spine
CPT/HCPCS: 64483; 64484; J1030

== ENCOUNTER → 2023-04-17 14:30 | Outpatient (POV) | payer BC, OTHER, SELFPAY ==
--- NOTE | 2023-04-17 14:41 | EXP.PAIN.SOA ---
[facility] Pain Management SOAP Note Subjective:: Patient is a pleasant 48-year-old female who presents today for follow-up of right transforaminal epidural steroid injection L4-L5 and L5-S1 on 04/07/2023. We are currently treating the patient for low back pain, degenerative disc disease of lumbar spine with lumbar radiculopathy symptoms, fibromyalgia and sacroiliitis. Today she rates her pain a 8 out of 10. She states that she only noticed approximately 30 minutes of relief following the last injection and that it came immediately back to baseline. She continues to state that she has mid back pain that is tender just with simple touching. She continues to have mid to low back pain that she describes as an aching, throbbing sensation that is worse with increased activity. It does limit her ability to move around or even simple ambulation. Patient does state that she continues to do at home exercise and stretching and walk daily however it is limited by how bad her pain is. She has tried [id number]-[id number] ibuprofen and Tylenol with no additional improvement. She continues to use heating pad and hot tub therapy on a daily basis to provide temporary relief. Patient has used topicals along with compounding cream however stopped using the medicated cream due to the sticky consistency. She has a history of GERD, IBS, fibromyalgia and systemic sclerosis. She does state that she feels like a lot of her pain has to do with her fibromyalgia. Patient was recently diagnosed with sleep apnea and prescribed a CPAP machine. Patient is currently prescribed Ambien 10 mg daily and has had tramadol 50 mg 3 times a day in the past by her primary care doctor. Patient denies any side effects from this medication. At our last visit we did prescribe her methocarbamol 500 mg twice a day and she states this did seem to provide improvement. She states that she does typically only take it at night because it did still make her little bit sleepy. We also referred her to neurosurgery at our last visit however she states she has not heard from this office. Her Vasquez has been reviewed and is appropriate. Review of Systems: General: No recent weight changes, no fever, no sleep disturbances Respiratory: No cough, no shortness of air, no recurring pulmonary infections Cardiovascular/peripheral vascular: No chest pain, no palpitations, no edema, no shortness of breath Gastrointestinal: No new onset incontinence, normal bowel movements reported Genitourinary: No new onset incontinence Musculoskeletal: mid back pain Psychiatric: [Normal mood/affect] Neurological: [Denies weakness in extremities], [denies balance issues] Objective:: Physical Exam: General: Alert and oriented x3, no acute distress, pleasant and cooperative Lungs: Respirations even and unlabored, symmetrical chest expansion Eyes: PERRL Musculoskeletal: Flexion and extension of thoracic [spine] somewhat guarded secondary to pain, [antalgic gait noted] extreme point tenderness noted approximately T7-T9 area Neurological: Speech clear, no gross sensory deficit Assessment:: Low back pain, degenerative disc disease of lumbar spine with lumbar radiculopathy symptoms, fibromyalgia, sacroiliitis Plan:: Patient continues to experience significant pain in her mid back with extreme point tenderness upon palpation. I will order MRI without contrast of her thoracic spine. I will also refill her methocarbamol 500 mg at bedtime and provide a 1 month supply of this medication. I will also recheck on her neurosurgery consult and discuss this at her next visit. Patient will return to clinic in 3 weeks following her imaging for reevaluation of symptoms and plan of care. Patient has been instructed to contact the clinic with any concerns before the next appointment. Dr. Morales has reviewed this note and agrees with this plan of care. This note was dictated using voice recognition software and make contain errors or omissions. [facility] Disclaimer:
[2023-04-17 15:28] VITALS: BP 125/83; PULSE 86; RESP 18; O2SAT 98; BMI 21.3
== END ==
PROVIDERS: PCP Family Medicine; Visit Provider Nurse Practitioner Family
DX: M51.16 Intervertebral disc disorders with radiculopathy, lumbar region (principal); M79.7 Fibromyalgia; M46.1 Sacroiliitis, not elsewhere classified
CPT/HCPCS: 99212; G0463

== ENCOUNTER → 2023-05-03 15:03 | Outpatient (CLI) | payer BC, OTHER, SELFPAY ==
--- NOTE | 2023-05-03 15:07 | MR_ITS ---
FINAL REPORT CLINICAL HISTORY: MID BACK PAIN FINDINGS: Multiplanar MR imaging of the thoracic spine was performed without contrast. On the sagittal T2-weighted images, disc degeneration is seen at several levels. There is no evidence of fracture. The vertebral alignment is normal. No bony mass is identified. The thoracic spinal cord has an unremarkable appearance without evidence of mass, edema or syrinx. There is no evidence of canal stenosis or cord compression. On the axial images, no focal disc protrusion is identified. There is no evidence of significant canal stenosis. No paraspinous soft tissue abnormality is seen. IMPRESSION: Multilevel disc degeneration without evidence of disc protrusion or canal stenosis. Reviewed, Interpreted and Dictated by Alexander Shaw III, MD Transcribed by Shakira Bacon Authenticated and [facility]
== END ==
PROVIDERS: PCP Family Medicine; Visit Provider Nurse Practitioner Family
DX: M54.6 Pain in thoracic spine (principal)
CPT/HCPCS: 72146

== ENCOUNTER → 2023-05-15 14:32 | Outpatient (POV) | payer BC, OTHER, SELFPAY ==
--- NOTE | 2023-05-15 14:36 | EXP.PAIN.SOA ---
[facility] Pain Management SOAP Note Subjective:: Patient is a pleasant 48-year-old female who presents today for follow-up of MRI results. We are currently treating the patient for low back pain, degenerative disc disease of lumbar spine with lumbar radiculopathy symptoms, fibromyalgia and sacroiliitis. Today she rates her pain a 6 out of 10. She states she continues to have mid to low back pain that is worse with increased ambulation. she describes it as an aching, throbbing sensation that is worse with increased activity. Patient does states she has no quality of life and that even with her fibromyalgia she feels like she should not be in this much pain. Patient does state that it interferes with her ability to perform activities of daily living. She states her pain is worse with certain movements such as bending, twisting or lifting. She does state that she continues to have even depression due to the constant pain. She has tried and failed conservative therapy such as oral medications such as Tylenol and ibuprofen along with heat and ice and topicals. Patient has recently been to neurosurgery who was recommending a lumbar medial branch block. Patient is currently managed with methocarbamol 500 mg twice a day. She denies any side effects from this medication. She states at this time she does not need any additional refills. Review of Systems: General: No recent weight changes, no fever, no sleep disturbances Respiratory: No cough, no shortness of air, no recurring pulmonary infections Cardiovascular/peripheral vascular: No chest pain, no palpitations, no edema, no shortness of breath Gastrointestinal: No new onset incontinence, normal bowel movements reported Genitourinary: No new onset incontinence Musculoskeletal: mid back pain, low back pain Psychiatric: [Normal mood/affect] Neurological: [Denies weakness in extremities], [denies balance issues] Objective:: Physical Exam: General: Alert and oriented x3, no acute distress, pleasant and cooperative Lungs: Respirations even and unlabored, symmetrical chest expansion Eyes: PERRL Musculoskeletal: Flexion and extension of lumbar [spine] somewhat guarded secondary to pain, [antalgic gait noted] positive Kemps test Neurological: Speech clear, no gross sensory deficit Assessment:: Degenerative disc disease of lumbar spine with lumbar radiculopathy symptoms, fibromyalgia, sacroiliitis, low back pain, mid back pain, lumbar facet arthropathy Plan:: Patient is experiencing significant pain in her mid to low back with limited range of motion of her lumbar spine. I have discussed with her the risk and benefits of the lumbar medial branch block. She would like to proceed forward with this plan of care. Patient is not on any blood thinners. Patient is only experiencing more pain along the right side. I have also counseled the patient in future we may look at doing a pain pump trial due to her constant pain. We will discuss this at future visits. Patient will be scheduled for a lumbar medial branch block right-sided L4-L5 and L5-S1. Patient has been instructed to contact the clinic with any concerns before the next appointment. Dr. Morales has reviewed this note and agrees with this plan of care. This note was dictated using voice recognition software and make contain errors or omissions. [facility] Disclaimer: The information contained in this section may have been updated after the patient was seen, as this information can be updated by other users. Medical History (Updated 04/17/23 @ 15:59 by Jennifer Leigh DO) Anxiety Fibromyalgia GERD (gastroesophageal reflux disease) HLD (hyperlipidemia) HTN (hypertension) Hypothyroidism Migraines Perimenopausal vasomotor symptoms Vitamin D deficiency Surgical History H/O: H/O: hysterectomy History of colonoscopy Hx of cholecystectomy [place] teeth removed Family History (Reviewed 04/17/23 @ 1
[2023-05-15 14:46] VITALS: BP 144/85; PULSE 76; RESP 18; O2SAT 99; BMI 21.6
== END ==
PROVIDERS: PCP Family Medicine; Visit Provider Nurse Practitioner Family
DX: M51.16 Intervertebral disc disorders with radiculopathy, lumbar region (principal); M79.7 Fibromyalgia; M46.1 Sacroiliitis, not elsewhere classified; M47.26 Other spondylosis with radiculopathy, lumbar region; M54.6 Pain in thoracic spine
CPT/HCPCS: 99212; G0463

== ENCOUNTER 2023-05-30 08:16 | Day surgery (SDC) | payer BC, OTHER, SELFPAY ==
[2023-05-30 08:40] VITALS: BP 126/66; PULSE 65; RESP 16; TEMP 36.3; O2SAT 100; BMI 21.6
[2023-05-30 09:03] VITALS: BP 129/89; PULSE 77; RESP 18; O2SAT 99
[2023-05-30 09:04] VITALS: BP 129/89; PULSE 77; RESP 18; O2SAT 99
[2023-05-30 09:08] VITALS: BP 125/79; PULSE 60; RESP 16; O2SAT 100
--- NOTE | 2023-05-30 09:08 | EXP.PAIN.PRO ---
Procedure Date: 05/30/23 Time: 08:50 Anesthesiologist:: Stef Carmichael CRNA Complications:: None Pre-procedure Diagnosis:: Degenerative disc disease lumbar spine multiple levels. Lumbar radiculopathy. Disc bulge L4-5. Post-procedure Diagnosis:: Same. Indications for Procedure:: Patient is a very pleasant 48-year-old female that comes our clinic today for right L4-5 and L5-S1 medial branch blocks/facet injection. Patient complains of right hip and leg radicular symptoms to the foot. Minimal back pain. Patient has tried and failed intralaminar epidural steroid injection. Transforaminal epidural steroid injection. Patient has had consultation with spine surgery. They recommend no surgery at this time. She rates her pain 7/10. Patient has difficulty with flexion, extension, left and right rotation. Difficulty with ambulation secondary to low back pain as well as right hip and leg pain. Procedure Details:: Details of the procedure explained to the patient. The patient taken to procedure room placed in the prone position on fluoroscopy table. The area of the lumbar spine was cleaned using chlorhexidine as a cleansing solution. Using fluoroscopy guidance a marker was placed over the right L4-5 as well as right L5-S1 facet joint. The skin and subcutaneous tissue was anesthetized using 1% lidocaine and a 25-gauge needle. Using fluoroscopy guidance a 3 and half inch 22-gauge spinal needle was used to access the right L4-5 and L5-S1 facet injection. 1 cc of 1% lidocaine and 10 mg of Depo-Medrol was injected at each level. The corresponding medial branch nerve at each level was blocked in the same fashion. Patient tolerated procedure without difficulty. There are no complications. Plan and Disposition:: Patient was discharged without incident.
== END 2023-05-30 09:08 | disposition home or self-care (01) ==
PROVIDERS: PCP Family Medicine; Visit Provider Nurse Anesthetist, Certified Registered
DX: M47.896 Other spondylosis, lumbar region (principal); M51.16 Intervertebral disc disorders with radiculopathy, lumbar region
CPT/HCPCS: 64493; 64494; J1040

== ENCOUNTER → 2023-06-14 10:31 | Outpatient (POV) | payer BC, OTHER, SELFPAY ==
--- OUTSIDE RECORDS SUMMARY | 2023-06-14 10:34 | XMS_ITS | Clinical Summary ---
Author Name Unknown Address [address] [place] [address] Phone Organization [facility] , [facility] Address [address] [place] [address] Phone Care Team Providers Care Fire Engine Operator Name Role Phone John OSORIO, Wilner Urban Unavailable [phone] Kimberly Conti DO Primary Care Provider [phone] Reason for Visit and Chief Complaint The Chief Complaint is: lower back pain Problems Includes: Problems addressed during this encounter and other active Problems Current Visit Onset Date Resolved Date Provider Анна hodge Status Lower Back Pain 06/25/2018 Wilner Lopez MD Act annmarie Plan of Treatment Instructions to patient Instructions for patient see pcp for bp Last Documented On 8 4:32PM ; [facility], [facility] Assessments Includes: Assessments from this encounter No Assessments Recorded Instructions Includes: Instructions from this encounter Instructions to patient Instructions for patient see pcp for bp Last Documented On 8 4:32PM ; [facility], [facility] Medical Equipment - Implanted Devices Includes: Current Devices No Medical Equipment Recorded Medications Includes: Medications discussed during this encounter and other current Medications New / Renewed during this visit Wilner Lopez MD on 06/25/2018 Naproxen 500MG Oral Tablet Provider: Cl Lopez MD 30 day supply: 60 tablet, 1 refills Diagnosis: twice a day Pharmacy: [facility]
--- OUTSIDE RECORDS SUMMARY | 2023-06-14 10:34 | XMS_ITS | Clinical Summary ---
Author Name Unknown Address [address] [place] [address] Phone Organization [facility] , [facility] Address [address] [place] [address] Phone Care Team Providers Care Barrel Raiser Helper Name Role Phone John OSORIO, Wilner Urban Unavailable [phone] Kimberly Conti DO Primary Care Provider [phone] Reason for Visit and Chief Complaint The Chief Complaint is: lower back pain Problems Includes: Problems addressed during this encounter and other active Problems Current Visit Onset Date Resolved Date Provider Анна hodge Status Lower Back Pain 06/25/2018 Wilner Lopez MD Act annmarie Plan of Treatment Urine drug screen is compliant today. ORT is low. Chief complaint lumbar spine pain which radiates right hip buttock and thigh with tingling and numbness. MRI lumbar spine showed disc bulges, neuroforaminal narrowing. Physical therapy, bedrest and Nsaids did not help above symptoms. Dr. Lopez did not recommend lumbar surgery. Schedule right SI joint injection 2 weeks. She may need a lumbar epidural injection and right L3-4-5 transforaminal epidural injection. No pain medication prescribed today return to clinic in 1 month - Last Documented On 07/03/2018 7:46PM ; [facility], [facility] Instructions to patient Instructions for patient see pcp for bp Last Documented On 8 3:24PM ; [facility], [facility] Assessments Includes: Assessments from this encounter Findings Right-sided lumbar radicular pain, right sacroiliac joint arthritis, and bilateral lumbar facet joint arthritis. - Last Documented On 07/03/2018 7:46PM ; [facility], [facility] Instructions Includes: Instructions from this encounter
--- OUTSIDE RECORDS SUMMARY | 2023-06-14 10:34 | XMS_ITS | Clinical Summary ---
Author Name Unknown Address [address] [place] [address] Phone Organization [facility] , [facility] Address [address] [place] [address] Phone Care Team Providers Care Installation Drafter Name Role Phone John OSORIO, Wilner Urban Unavailable [phone] Kimberly Conti DO Primary Care Provider [phone] Reason for Visit and Chief Complaint INJECTION Problems Includes: Problems addressed during this encounter and other active Problems All Visits Onset Date Resolved Date Provider Condition S tatus Lower Back Pain 06/25/2018 Wilner Lopez MD Act annmarie Plan of Treatment No Plan of Treatment Recorded Assessments Includes: Assessments from this encounter No Assessments Recorded Medical Equipment - Implanted Devices Includes: Current Devices No Medical Equipment Recorded Medications Includes: Medications discussed during this encounter and other current Medications Current Medications (continue as prescribed) Metoprolol Succinate ER 25MG Oral Tablet, extended-release 24 hour 06/29/2018 Provider: Kimberly Conti DO Diagnosis: Pravastatin Sodium 20MG Oral Tablet 06/25/2018 Provi enmanuel: Diagnosis: CeleXA 20MG Oral Tablet 06/25/2018 Provider: Diagnosis: Kalin
--- OUTSIDE RECORDS SUMMARY | 2023-06-14 10:34 | XMS_ITS ---
Author Name Unknown Address [address] [place] [address] Phone Organization [facility] Address [address] [place] [address] Phone Care Team Providers Care Engineering Production Worker Name Role Phone John OSORIO, Wilner Urban Unavailable [phone] Kimberly Conti DO Primary Care Provider [phone] Problems Includes: Active, inactive, and resolved Problems All Visits Onset Date Resolved Date Provider Condition S tatus Lower Back Pain 06/25/2018 Wilner Lopez MD Act annmarie Plan of Treatment Instructions to patient Instructions for patient see pcp for bp Last Documented On 8 3:24PM ; [facility] Instructions for patient see pcp for bp Last Documented On 8 4:32PM ; [facility] Assessments Includes: Assessments for all patient encounters No Assessments Recorded Instructions Includes: Instructions for all patient encounters Instructions to patient Instructions for patient see pcp for bp Last Documented On 8 3:24PM ; [facility] Instructions for patient see pcp for bp Last Documented On 8 4:32PM ; [facility], [facility] Medical Equipment - Implanted Devices Includes: Current and historical Devices No Medical Equipment Recorded Medications Includes: Current and historical Medications Current Medications (continue as prescribed)
--- OUTSIDE RECORDS SUMMARY | 2023-06-14 10:34 | XMS_ITS ---
Care Plan - [facility], [facility] Created on: June 14, 2023 Allen Ramandeep : 1975 Sex: Female Author Name Unknown Address [address] [place] [address] Phone Organization [facility] , [facility] Address [address] [place] [address] Phone Care Team Providers Care Stock Counter Name Role Phone Wilner Lopez MD Unavailable [phone] Kimberly Conti DO Primary Care Provider [phone]
--- NOTE | 2023-06-14 10:54 | EXP.PAIN.SOA ---
[facility] Pain Management SOAP Note Subjective:: Patient is a pleasant 48-year-old female who presents today for follow-up of her first lumbar medial branch block right-sided L4-L5 and L5-S1 on 05/30/2023. We are currently treating the patient for degenerative disc disease of lumbar spine with lumbar radiculopathy symptoms, fibromyalgia, sacroiliitis, lumbar facet arthropathy, lumbar spondylosis. Today she rates her pain a 4 out of 10. Patient denies any new trauma or injury. She does state that she had 100% relief lasting at least 30 minutes following this injection. She states that frequently she does get pain following each of the injections at the site and that it did seem to overshadow the improvement at that point. Patient does state today that she is back at her baseline and describes her pain as an aching, throbbing sensation that continues to remain on the right side of her low back. Patient denies any radiating symptoms into her legs. Patient does state the pain interferes with her ability perform activities of daily living such as cooking and cleaning. She does state that she is scheduled to see her piece work inspector tomorrow. Patient is currently managed with methocarbamol 500 mg twice a day as needed. Patient states she does not need any refills at this time. Her Vasquez is [phone]. Its been reviewed and appropriate. Review of Systems: General: No recent weight changes, no fever, no sleep disturbances Respiratory: No cough, no shortness of air, no recurring pulmonary infections Cardiovascular/peripheral vascular: No chest pain, no palpitations, no edema, no shortness of breath Gastrointestinal: No new onset incontinence, normal bowel movements reported Genitourinary: No new onset incontinence Musculoskeletal: Low back pain Psychiatric: [Normal mood/affect] Neurological: [Denies weakness in extremities], [denies balance issues] Objective:: Physical Exam: General: Alert and oriented x3, no acute distress, pleasant and cooperative Lungs: Respirations even and unlabored, symmetrical chest expansion Eyes: PERRL Musculoskeletal: Flexion and extension of lumbar [spine] somewhat guarded secondary to pain, [antalgic gait noted] positive Kemps test Neurological: Speech clear, no gross sensory deficit Assessment:: Degenerative disc disease of lumbar spine with lumbar facet arthropathy, lumbar spondylosis, fibromyalgia, sacroiliitis Plan:: Patient continues to have right-sided low back pain with limited range of motion. Patient had a positive Kemps test and had a successful first lumbar medial branch block providing 100% relief for a short period of time. I have discussed with the patient that she may benefit from repeat injections. Risk and benefits were explained to the patient and she would like to proceed forward with this plan of care. I have counseled the patient if she gets another successful block we will proceed forward with ordering the lumbar RFA next. Patient will be scheduled for a right lumbar medial branch block L4-L5 and L5-S1. Patient has been instructed to contact the clinic with any concerns before the next appointment. Dr. Morales has reviewed this note and agrees with this plan of care. This note was dictated using voice recognition software and make contain errors or omissions. [facility] Disclaimer: The information contained in this section may have been updated after the patient was seen, as this information can be updated by other users. Medical History Anxiety Fibromyalgia GERD (gastroesophageal reflux disease) HLD (hyperlipidemia) HTN (hypertension) Hypothyroidism Migraines Perimenopausal vasomotor symptoms Vitamin D deficiency Surgical History H/O: H/O: hysterectomy History of colonoscopy Hx of cholecystectomy [place] teeth removed Family History (Reviewed 04/17/23 @ 15:56 by Jennifer Dia
[2023-06-14 12:47] VITALS: BP 130/86; PULSE 87; RESP 18; O2SAT 98; BMI 21.3
== END | disposition home or self-care (01) ==
PROVIDERS: PCP Family Medicine; Visit Provider Nurse Practitioner Family
DX: M51.36 Other intervertebral disc degeneration, lumbar region (principal); M47.816 Spondylosis without myelopathy or radiculopathy, lumbar region; M79.7 Fibromyalgia; M46.1 Sacroiliitis, not elsewhere classified
CPT/HCPCS: 99212; G0463

== ENCOUNTER 2023-07-18 13:38 | Day surgery (SDC) | payer BC, OTHER, SELFPAY ==
[2023-07-18 13:52] VITALS: BP 128/81; PULSE 79; RESP 16; TEMP 36.3; O2SAT 94; BMI 20.7
[2023-07-18 14:06] VITALS: BP 135/82; PULSE 74; O2SAT 97
[2023-07-18 14:08] VITALS: BP 135/82; PULSE 84; O2SAT 97
[2023-07-18 14:14] VITALS: BP 106/78; PULSE 62; RESP 16; O2SAT 94
--- NOTE | 2023-07-18 14:14 | EXP.PAIN.PRO ---
Procedure Date: 07/18/23 Time: 14:15 Anesthesiologist:: Stef Carmichael CRNA Complications:: None Pre-procedure Diagnosis:: Degenerative disc lumbar spine multilevels. Lumbar radiculopathy. Lumbar spondylosis. Multilevel lumbar facet arthropathy. Fibromyalgia. Post-procedure Diagnosis:: Same. Indications for Procedure:: Patient is a pleasant 48-year-old female that comes our clinic today for right L4-5, L5-S1 medial branch blocks/facet injection. Patient requesting no steroids. Block will be given with lidocaine only. She right low lumbar back pain. Some radicular symptoms into the right posterior hip. She rates her pain 6/10. Procedure Details:: Details of the procedure explained to the patient. Patient taken procedure room placed in prone position on fluoroscopy table. The area over the lumbar spine was cleansed using chlorhexidine as a cleansing solution. Using a 22-gauge 3 inch needle the right L4-5 and L5-S1 facet joint was accessed. Each joint was injected with 1 cc of 1% lidocaine. The medial branch nerve at each level was blocked as well with 0.5 mL of lidocaine. Patient tolerated procedure without difficulty. There are no complications. Plan and Disposition:: Patient was discharged without incident.
== END 2023-07-18 14:14 | disposition home or self-care (01) ==
PROVIDERS: PCP Family Medicine; Visit Provider Nurse Anesthetist, Certified Registered
DX: M51.16 Intervertebral disc disorders with radiculopathy, lumbar region (principal); M79.7 Fibromyalgia; M47.896 Other spondylosis, lumbar region
CPT/HCPCS: 64493; 64494

== ENCOUNTER → 2023-08-03 14:29 | Outpatient (POV) | payer BC, OTHER, SELFPAY ==
[2023-08-03 14:30] VITALS: BP 114/84; PULSE 92; RESP 18; O2SAT 100; BMI 20.7
--- NOTE | 2023-08-03 15:06 | EXP.PAIN.SOA ---
[facility] Pain Management SOAP Note Subjective:: Patient is a pleasant 48-year-old female who presents today for follow-up of her second lumbar medial branch block right-sided L4-L5 and L5-S1 on 05/30/2023. We are currently treating the patient for degenerative disc disease of lumbar spine with lumbar radiculopathy symptoms, fibromyalgia, sacroiliitis, lumbar facet arthropathy, lumbar spondylosis. Today she rates her pain a 4 out of 10. Patient denies any new trauma or injury. She states that she did have approximately 90% improvement following this injection however it only lasted for approximately 30 minutes. Patient does state that she slowly returned back to her baseline. Patient states she continues to deal with chronic pain on a daily basis throughout multiple joints including her low back. Patient does state that typically it is flared up by her fibromyalgia. Patient did previously have 100% improvement with her first medial branch block however still short-lived. At her last visit we did discuss the lumbar RFA. She states she would like to proceed forward with this plan of care. Patient states that her chronic pain does interfere with her daily life and is unable to perform activities of daily living such as cooking and cleaning. Patient states that she has gone to part-time work due to the pain and constant doctor visits. Patient states she has been using some of her tramadol from the past and it is helping some. Patient does see a assistant front end manager. She is currently managed with methocarbamol 500 mg twice a day as needed. Patient states she does not need any refills at this time. Her Vasquez has been reviewed and appropriate. Review of Systems: General: No recent weight changes, no fever, no sleep disturbances Respiratory: No cough, no shortness of air, no recurring pulmonary infections Cardiovascular/peripheral vascular: No chest pain, no palpitations, no edema, no shortness of breath Gastrointestinal: No new onset incontinence, normal bowel movements reported Genitourinary: No new onset incontinence Musculoskeletal: Low back pain Psychiatric: [Normal mood/affect] Neurological: [Denies weakness in extremities], [denies balance issues] Objective:: Physical Exam: General: Alert and oriented x3, no acute distress, pleasant and cooperative Lungs: Respirations even and unlabored, symmetrical chest expansion Eyes: PERRL Musculoskeletal: Flexion and extension of lumbar [spine] somewhat guarded secondary to pain, [antalgic gait noted] positive Kemps test Neurological: Speech clear, no gross sensory deficit Assessment:: Degenerative disc disease of lumbar spine with lumbar radiculopathy symptoms, fibromyalgia, sacroiliitis, lumbar facet arthropathy, lumbar spondylosis, chronic pain syndrome Plan:: Patient did have a successful second lumbar medial branch block. I have discussed with the patient due to her chronic low back pain and worsening pain with limited range of motion during today's exam that she may benefit from a lumbar RFA. Risk and benefits were discussed again with the patient and she would like to proceed forward with this plan of care. Patient is not on any blood thinners. I have also discussed with the patient that due to her chronic pain and fibromyalgia that in the long run she may also benefit from a spinal cord stimulator trial or pain pump trial in the future. Risk and benefits and educational handouts were given to the patient during today's visit and she would like to proceed forward with this option as well. I will order a psychological evaluation and if she is deemed an appropriate candidate we will proceed forward with a trial at a future date. Patient will be scheduled for a lumbar RFA right-sided L4-L5 and L5-S1. Patient has been instructed to contact the clinic with any concerns before the next appointment. Dr. Morales has reviewed this note and agrees with this plan of care. This note was dictated using voice recognition software and abraham
== END ==
PROVIDERS: PCP Family Medicine; Visit Provider Nurse Practitioner Family
DX: M51.16 Intervertebral disc disorders with radiculopathy, lumbar region (principal); M79.7 Fibromyalgia; M46.1 Sacroiliitis, not elsewhere classified; M47.26 Other spondylosis with radiculopathy, lumbar region; G89.4 Chronic pain syndrome
CPT/HCPCS: 99212; G0463

== ENCOUNTER 2023-08-15 07:56 | Day surgery (SDC) | payer BC, OTHER, SELFPAY ==
[2023-08-15 08:17] VITALS: BP 108/59; PULSE 67; O2SAT 99; BMI 20.7
[2023-08-15 08:44] VITALS: BP 106/69; PULSE 68; RESP 18; O2SAT 100
[2023-08-15 08:46] VITALS: BP 106/69; PULSE 67; RESP 18; O2SAT 100
--- NOTE | 2023-08-15 08:54 | P.PCN_ITS ---
Procedure Date: 08/15/23 Time: 08:35 Anesthesiologist:: Stef Carmichael CRNA Complications:: None Pre-procedure Diagnosis:: Degenerative disc lumbar spine multilevels. Lumbar spondylosis. Multilevel lumbar facet arthropathy. Lumbar radiculopathy. Post-procedure Diagnosis:: Same. Indications for Procedure:: Patient is a very pleasant 48-year-old female comes our clinic today for right L4-5, L5-S1 radiofrequency ablation. Patient has had significant improvement terms of her overall low back pain as well as bilateral hip and leg radicular symptoms with medial branch blocks/facet blocks at the same levels. Procedure Details:: Informed consent was obtained and the risk and benefits of the procedure was explained to the patient. Patient was placed prone on the procedure table. The patient was prepped and draped in sterile fashion. C-arm fluoroscopy was used to view the lumbar spine. The skin and subcutaneous tissues were anesthetized using lidocaine. I placed 20-gauge RF needles into the facet joints of L4-L5 and L5-S1 on the right side. We underwent sensory stimulation. There is good sensory stimulation at 0.8 V. We underwent motor stimulation. There is no motor stimulation at 2 V. We then anesthetized these levels with lidocaine and Depo- Medrol. I used a total of 40 mg Depo-Medrol for all 3 levels. I then burned all 3 levels of L4-5 and L5-S1 on the right side for 4 minutes at 80 ?C. Patient tolerated the procedure well with no complication. Plan and Disposition:: Patient was discharged without incident.
[2023-08-15 08:57] VITALS: BP 106/74; PULSE 59; O2SAT 100
== END 2023-08-15 08:53 | disposition home or self-care (01) ==
LOC: SC.PAINP 07:56
PROVIDERS: PCP Family Medicine; Visit Provider Nurse Anesthetist, Certified Registered
DX: M51.16 Intervertebral disc disorders with radiculopathy, lumbar region (principal); M47.26 Other spondylosis with radiculopathy, lumbar region
CPT/HCPCS: 64635; 64636; J1040

== ENCOUNTER → 2023-09-01 09:00 | Outpatient (POV) | payer BC, OTHER, SELFPAY ==
[2023-09-01 09:30] VITALS: BP 132/83; PULSE 66; RESP 18; O2SAT 97
--- NOTE | 2023-09-01 11:07 | A.OFFVIS_ITS ---
[facility] Pain Management SOAP Note Subjective:: Patient is a pleasant 48-year-old female who presents today for follow-up of lumbar RFA on 08/15/2023. We are currently treating the patient for degenerative disc disease of lumbar spine with lumbar radiculopathy symptoms, fibromyalgia, lumbar facet arthropathy, lumbar spondylosis. Today she rates her pain a 5 out of 10. Patient denies any new trauma or injury. Patient states that she only had improvement lasting a few hours following this injection. Patient states she is back to her baseline today and continues to have chronic pain in her low back that radiates down her bilateral lower extremities. Patient does have multiple joints throughout her body that do cause chronic pain and will occasionally have a flareup of her fibromyalgia. Patient has tried and failed conservative therapy such as oral medication, heat and ice, topicals, physical therapy, at home stretching exercise for longer than 6 weeks. Patient is currently managed with tramadol 50 mg 2 times a day from Dr. Shore office. Patient does state that this has helped with some of her pain. Patient was prescribed methocarbamol 500 mg twice a day from our office however she stated that she has not really been needing this since she has been using the tramadol. Patient did go for a psychological evaluation for possible spinal cord stimulator trial and would like to go over the findings today. Patient does state that she would like to proceed forward with the spinal cord stimulator trial. Patient states she has very little quality of life and is still only working part-time due to the pain. Patient has been to see a neurosurgeon who was not recommending surgical intervention at this time. Her Vasquez has been reviewed and is appropriate. Review of Systems: General: No recent weight changes, no fever, no sleep disturbances Respiratory: No cough, no shortness of air, no recurring pulmonary infections Cardiovascular/peripheral vascular: No chest pain, no palpitations, no edema, no shortness of breath Gastrointestinal: No new onset incontinence, normal bowel movements reported Genitourinary: No new onset incontinence Musculoskeletal: Low back pain, bilateral leg pain Psychiatric: [Normal mood/affect] Neurological: [Denies weakness in extremities], [denies balance issues] Objective:: Physical Exam: General: Alert and oriented x3, no acute distress, pleasant and cooperative Lungs: Respirations even and unlabored, symmetrical chest expansion Eyes: PERRL Musculoskeletal: Flexion and extension of lumbar [spine] somewhat guarded secondary to pain, [antalgic gait noted] Neurological: Speech clear, no gross sensory deficit Assessment:: Degenerative disc disease of lumbar spine with lumbar radiculopathy symptoms, lumbar facet arthropathy, lumbar spondylosis, fibromyalgia, chronic pain sy ndrome Plan:: Patient continues to experience significant pain on a daily basis with limited range of motion of her lumbar spine. I have reviewed over her psychological evaluation and she was deemed an appropriate candidate for the spinal cord stimulator trial. Risk and benefits were reviewed with the patient regarding the trial as well as implant and she would like to proceed forward with this plan of care. Patient has tried and failed conservative therapy such as oral medication, heat and ice, topicals, physical therapy, at home stretching exercises for longer than 6 weeks. We will submit to insurance for the spinal cord stimulator trial and contact the patient once we have official approval for specific time and date. Patient has been instructed to contact the clinic with any concerns before the next appointment. Dr. Morales has reviewed this note and agrees with this plan of care. This note was dictated using voice recognition software and make contain errors or omissions. [facility] Disclaimer: The information contained in this section may have been updated after the patient was seen, as this information can be updated by other users. Medical History Anxiety Fibromyalgia GERD (gastroesophageal reflux disease) HLD (hyperlipidemia) HTN (hypertension) Hypothyroidism Migraines Perimenopausal vasomotor symptoms Vitamin D deficiency Surgical History H/O: H/O: hysterectomy History of colonoscopy Hx of cholecystectomy [place] teeth removed Family History Other Afib Coronary artery disease Hyperlipidemia Hypothyroidism Social History (Updated 08/15/23 @ 08:16 by Jessica Oliveira RN) Smoking Status: Never smoker alcohol intake: never current occupational status: other Travel in the last 8 weeks: None
== END ==
LOC: SC.PAIN 09:01
PROVIDERS: PCP Family Medicine; Visit Provider Nurse Practitioner Family
DX: M51.16 Intervertebral disc disorders with radiculopathy, lumbar region (principal); M47.26 Other spondylosis with radiculopathy, lumbar region; M79.7 Fibromyalgia; G89.4 Chronic pain syndrome
CPT/HCPCS: 99212; G0463

== ENCOUNTER 2023-10-06 08:57 | Day surgery (SDC) | payer BC, OTHER, SELFPAY ==
[2023-10-06 09:12] VITALS: BP 123/64; PULSE 63; RESP 18; TEMP 36.4; O2SAT 100
[2023-10-06] MEDS: LACTATED RINGERS 1000ML 1,000 ML 25 ML IV (09:21)
[2023-10-06] MEDS: VANCOMYCIN HCL 1,000 MG in 0.9 % SODIUM CHLORIDE 250 ML 125 MG IV (10:20)
--- NOTE | 2023-10-06 11:37 | EXP.ANES.CKL ---
[facility] Disclaimer: The information contained in this section may have been updated after the patient was seen, as this information can be updated by other users. Medical History Anxiety Fibromyalgia GERD (gastroesophageal reflux disease) HLD (hyperlipidemia) HTN (hypertension) Hypothyroidism Migraines Perimenopausal vasomotor symptoms Vitamin D deficiency Surgical History H/O: H/O: hysterectomy History of colonoscopy Hx of cholecystectomy [place] teeth removed Family History Other Afib Coronary artery disease Hyperlipidemia Hypothyroidism Social History (Updated 10/06/23 @ 09:20 by Gaby Bunch RN) Smoking Status: Former smoker alcohol intake: never substance use type: denies use current occupational status: employed Travel in the last 8 weeks: None [facility] Anesthesia Checklist Patient Identification Patient Identification: Arm Band, Family () and Verbal (Name & ) Structural Data Admitted From: Home Planned Operative Procedure/s: SC stimulator trial Consent for Planned Operative Procedure(s) Verified: Yes Verified Documents: Surgical Consent and History and Physical NPO Status Verified Time NPO: 21:00 Chart Verification Results Verified: None (Nothing on chart since 02/2022), CBC, BMP and ECG Additional verifications Patient : No Anesthesia Reactions: No Hx Blood Transfusions: No Blood Transfusion Reaction: No Cardiovascular Assessment Heart Sounds: S1 & S2 Pulse Rhythm: Irregular Peripheral Edema: No Airway Assessment Mallampati Score:: Class I C-Spine Mobility Assessed: Yes (FROM) TMJ Mobility Assessed: Yes Dentition: Good Dentition (Nothing loose per pt.) Neurological Assessment Level of Consciousness: Awake, Alert, Appropriate and Follows Commands Hx Seizures: No Numbness or tingling in extremities: Yes (YENIFER LE & fingers) Anesthesia Plan Anesthesia Risk discussed: Yes Anesthesia Plan: Verified ASA Class: III Anesthesia Type: MAC
[2023-10-06] MEDS: LIDOCAINE 1% W/EPI 1:100,000 20ML VIAL 40 ML (12:12)
[2023-10-06 12:30] VITALS: BP 97/64; PULSE 56; RESP 16; TEMP 36.7; O2SAT 100
[2023-10-06 12:45] VITALS: BP 104/65; PULSE 55; RESP 16; O2SAT 100
[2023-10-06 13:00] VITALS: BP 101/71; PULSE 52; RESP 18; O2SAT 99
--- NOTE | 2023-10-06 13:04 | P.OP_ITS ---
Date of procedure: 10/06/23 Pre-op Diagnosis:: Degenerative disc disease of lumbar spine with lumbar radiculopathy symptoms Post-op Diagnosis:: Same Procedure performed:: Spinal cord stimulator trial with epidural lead placement x 2 Surgeon:: Saman Morales MD RICE DRYER MECHANIC:: Other Anesthesia: MAC Estimated blood loss (mL): 1 Clinical Note:: This patient is a pleasant 48-year-old white female who we have been treating for low back pain and right hip and right leg pain. She has failed all previous conservative treatments including injections, oral medications, physical therapy and she is not a candidate for surgery. She has had a successful psychological evaluation. She presents for spinal cord stimulator trial today. Operative findings:: None Operative note:: Informed consent was obtained risk and benefits of the procedure were explained to the patient. Patient was taken the operating room placed prone on the procedure table. She was prepped and draped in sterile fashion. C-arm fluoroscopy was used to view the lumbar spine. The skin and subcutaneous tissues were anesthetized using lidocaine. A 17-gauge epidural needle was inserted and advanced into the L2-L3 interspace. After confirmation of needle placement in the epidural space a stimulating lead was inserted and advanced very easily to the T7-T8-T9 vertebral body. A second needle was then inserted and then advanced into the L2-L3 interspace again. Again after confirmation of needle placement in the epidural space a second stimulating lead was inserted and advanced very easily again to the T7-T8-T9 vertebral body. Leads were checked in AP and lateral views. There are posterior and 1 was midline and one was right of midline. The stylette's and needles were withdrawn. The leads were secured with Tegaderm and dressing. The patient was then taken recovery for programming. The patient tolerated the procedure well with no complications. Patient had good stimulation in all areas of pain. She program very nicely by the [email or web address] sales representative adding machines. She was discharged home neurologic intact with good relief of pain symptoms. Plan and disposition: We will follow-up with this patient in 1 week for lead pull. Will assess efficacy of this trial Condition: stable Disposition: PACU Complications:: none
[2023-10-06 13:12] VITALS: BP 97/61; PULSE 56; RESP 16; O2SAT 98
== END 2023-10-06 13:12 | disposition home or self-care (01) ==
PROVIDERS: PCP Family Medicine; Visit Provider Anesthesiology
PROC: (CPT 62350; principal; 2023-10-06 09:30)
DX: M51.16 Intervertebral disc disorders with radiculopathy, lumbar region (principal)
CPT/HCPCS: 62350 ×2; 96374; C1778; J3370

== ENCOUNTER → 2023-10-12 09:03 | Outpatient (POV) | payer BC, OTHER, SELFPAY ==
--- NOTE | 2023-10-12 10:09 | EXP.PAIN.SOA ---
[facility] Pain Management SOAP Note Subjective:: Patient is a pleasant 48-year-old female who presents today for follow-up of her spinal cord stimulator trial. We are currently treating the patient for degenerative disc disease of lumbar spine with lumbar radiculopathy symptoms, fibromyalgia, mild lumbar facet arthropathy, lumbar spondylosis. Today she rates her pain a 3 out of 10. Patient denies any new trauma or injury. She does state that she had at least 75% improvement following this procedure. She states she was able to increase her activity with decreased pain symptoms and felt overall more functional with this device. Patient does state that she had to make some adjustments during the trial in order to target a little bit more in her back and that the reprogramming did help this. Patient has tried and failed conservative therapy such as oral medication, heat and ice, topicals, physical therapy, at home stretching exercise for longer than 6 weeks and injection therapy. Patient did have a psychological evaluation and was found an appropriate candidate for this device. Patient does state that she would like to proceed forward with this plan of care. Her Vasquez has been reviewed and is appropriate. Review of Systems: General: No recent weight changes, no fever, no sleep disturbances Respiratory: No cough, no shortness of air, no recurring pulmonary infections Cardiovascular/peripheral vascular: No chest pain, no palpitations, no edema, no shortness of breath Gastrointestinal: No new onset incontinence, normal bowel movements reported Genitourinary: No new onset incontinence Musculoskeletal: Low back pain, leg pain Psychiatric: [Normal mood/affect] Neurological: [Denies weakness in extremities], [denies balance issues] Objective:: Physical Exam: General: Alert and oriented x3, no acute distress, pleasant and cooperative Lungs: Respirations even and unlabored, symmetrical chest expansion Eyes: PERRL Musculoskeletal: Flexion and extension of lumbar [spine] somewhat guarded secondary to pain, [antalgic gait noted] Neurological: Speech clear, no gross sensory deficit Assessment:: Degenerative disc disease of lumbar spine with lumbar radiculopathy symptoms, lumbar facet arthropathy, lumbar spondylosis, fibromyalgia Plan:: Patient did have a successful spinal cord stimulator trial with at least 75% improvement in overall improvement in daily function with this device. I have reviewed over the risk and benefits of the implant procedure and she would like to proceed forward with this plan of care. Patient is not on any blood thinners. Patient has tried and failed conservative therapy. We will schedule the patient for her spinal cord stimulator implant and contact the patient once we have official insurance approval with time and date of this procedure. Patient has been instructed to contact the clinic with any concerns before the next appointment. Dr. Morales has reviewed this note and agrees with this plan of care. This note was dictated using voice recognition software and make contain errors or omissions. [facility] Disclaimer: The information contained in this section may have been updated after the patient was seen, as this information can be updated by other users. Medical History Anxiety Fibromyalgia GERD (gastroesophageal reflux disease) HLD (hyperlipidemia) HTN (hypertension) Hypothyroidism Migraines Perimenopausal vasomotor symptoms Vitamin D deficiency Surgical History H/O: H/O: hysterectomy History of colonoscopy Hx of cholecystectomy [place] teeth removed Family History Other Afib Coronary artery disease Hyperlipidemia Hypothyroidism Social History (Updated 10/06/23 @ 11:38 by Meena Stiles CRNA) Smoking Status: Former smoker alcohol intake: never substance use type: denies use current occupational status: employed Travel in the last 8 weeks: None
[2023-10-12 10:21] VITALS: BP 118/82; PULSE 79; RESP 18; O2SAT 100; BMI 20.7
== END ==
LOC: SC.PAIN 09:04
PROVIDERS: PCP Family Medicine; Visit Provider Nurse Practitioner Family
DX: M51.16 Intervertebral disc disorders with radiculopathy, lumbar region (principal); M47.26 Other spondylosis with radiculopathy, lumbar region; M79.7 Fibromyalgia
CPT/HCPCS: 99212; 99213; G0463

== ENCOUNTER 2023-11-28 08:56 | Day surgery (SDC) | payer BC, OTHER, SELFPAY ==
[2023-11-28] VITALS (7 sets, daily range): BP systolic 99–117; BP diastolic 53–70; PULSE 66–89; RESP 16–18; TEMP 36.1–36.2; O2SAT 96–100
[2023-11-28] MEDS: LACTATED RINGERS 1000ML 1,000 ML 25 ML IV (09:12)
[2023-11-28] MEDS: VANCOMYCIN HCL 1,000 MG in 0.9 % SODIUM CHLORIDE 250 ML 125 MG IV (09:12)
[2023-11-28 09:33] LABS: Basophils # 0.1 K/mm3 (0-0.2); Basophils % 1.3 % (0.1-2.0); Eosinophils # 0.2 K/mm3 (0.0-0.4); Eosinophils % 2.8 % (0.1-12.0); Hematocrit 42.9 % (37.0-47.0); Hemoglobin 13.9 g/dL (12.2-16.2); Lymphocytes # 1.5 K/mm3 (0.7-4.5); Lymphocytes % 26.1 % (10-50); Mean Corpuscular HGB Conc 32.4 g/dL (31.8-35.4); Mean Corpuscular Hemoglobin 31.4 pg (27.0-31.2); Mean Corpuscular Volume 96.7 fl (81-99); Mean Platelet Volume 7.8 fl (7.4-10.4); Monocytes # 0.3 K/mm3 (0.1-1.0); Monocytes % 4.5 % (1.7-9.3); Neutrophils # 3.6 K/mm3 (1.8-7.8); Neutrophils % 65.1 % (37.0-80.0); Platelet Count 248 K/mm3 (142-424); Red Blood Count 4.44 M/mm3 (4.20-5.40); Red Cell Distribution Width 13.2 % (11.5-17.5); White Blood Count 5.5 K/mm3 (4.8-10.8)
[2023-11-28 09:38] LABS: Chloride 105 mmol/L (98-107); Potassium 3.7 mmoL/L (3.5-5.1); Sodium 139 mmol/L (136-145)
[2023-11-28 09:41] LABS: Anion Gap 8.7 mEq/L (5-15); Blood Urea Nitrogen 14 mg/dl (7-17); Calcium 9.4 mg/dl (8.4-10.2); Carbon Dioxide 29 mmol/L (22.0-30.0); Creatinine Clearance Estimated 75 mL/min (50-200); Estimated Glomerular Filt Rate 77 ml/min (>60); GFR (African American) 93 ML/MIN (>60); Glucose 98 mg/dl (74-100)
--- NOTE | 2023-11-28 11:00 | EXP.ANES.CKL ---
[facility] Disclaimer: The information contained in this section may have been updated after the patient was seen, as this information can be updated by other users. Medical History Perimenopausal vasomotor symptoms Anxiety HLD (hyperlipidemia) Migraines HTN (hypertension) GERD (gastroesophageal reflux disease) Vitamin D deficiency Hypothyroidism Fibromyalgia Surgical History [place] teeth removed History of colonoscopy H/O: hysterectomy Hx of cholecystectomy H/O: Family History Other Afib Coronary artery disease Hyperlipidemia Hypothyroidism Social History Smoking Status: Former smoker alcohol intake: never substance use type: denies use current occupational status: employed Travel in the last 8 weeks: None [facility] Anesthesia Checklist Patient Identification Patient Identification: Arm Band and Verbal (Name & ) Structural Data Admitted From: Home Planned Operative Procedure/s: STimulator NPO Status Verified Time NPO: 00:00 Additional verifications Anesthesia Reactions: No Hx Blood Transfusions: No Blood Transfusion Reaction: No Airway Assessment Mallampati Score:: Class II C-Spine Mobility Assessed: Yes TMJ Mobility Assessed: Yes Dentition: Good Dentition Neurological Assessment Level of Consciousness: Awake Hx Seizures: No Numbness or tingling in extremities: No Anesthesia Plan Anesthesia Risk discussed: Yes Anesthesia Plan: Verified ASA Class: II Anesthesia Type: MAC
[2023-11-28] MEDS: BACITRACIN ZINC OINT 30GM TUBE 28 GM TP (11:22)
[2023-11-28] MEDS: GENTAMICIN 80 MG/2 ML VIAL (11:22)
[2023-11-28] MEDS: SODIUM CHLORIDE 0.9% 20ML VIAL 40 ML IV (11:22)
[2023-11-28] MEDS: LIDOCAINE 1% W/EPI 1:100,000 20ML VIAL 20 ML (11:22)
[2023-11-28] MEDS: MORPHINE 4MG/ML SYRINGE 4 MG (12:28)
--- NOTE | 2023-11-28 13:27 | P.OP_ITS ---
Date of procedure: 11/28/23 Pre-op Diagnosis:: Degenerative disc disease of lumbar spine with lumbar radiculopathy symptoms Post-op Diagnosis:: Same Procedure performed:: Permanent placement spinal cord stimulator with epidural lead placement x 2 and stimulator generator placement Surgeon:: Saman Morales MD VACUUM COOKER OPERATOR:: Angie Treadwell Anesthesia: MAC Estimated blood loss (mL): 5 Clinical Note:: The patient is a pleasant 48-year-old white female who we are treating for low back pain with lumbar radiculopathy symptoms. She has failed all previous conservative treatments including injections, oral medications, physical therapy and she is not a candidate for surgery. She has had a successful psychological evaluation and a successful spinal cord stimulator trial. She presents for permanent placement of her spinal cord stimulator today. This will be a [email or web address] system. Operative findings:: None Operative note:: Informed consent was obtained the risk and benefits of the procedure were explained to the patient. Patient was taken the operating room placed prone on the procedure table. She was prepped and draped in sterile fashion. C-arm fluoroscopy was used to view the lumbar spine. The skin and subcutaneous tissues were anesthetized using lidocaine adjacent to the L1-2 and L2-L3 interspace. I made an incision and dissected down to the lumbar paraspinous fascia. A 17-gauge epidural needle was inserted and advanced into the L1-L2 interspace. After accessing the epidural space stimulator lead was inserted and advanced very easily to the T8-T9 interspace. Lead was checked in AP and lateral view and found to be in good position and posterior. A second needle was inserted and advanced again into the L1-L2 interspace. Again after accessing the epidural space a stimulating lead was inserted and advanced very easily to the T8-T9 interspace. Again lead was checked in AP and lateral views and found to be in good position and posterior. The needles and stylets were removed. The leads were secured to the fascia with an anchor device and 2-0 Prolene. I created the generator pocket on the right flank. I tunneled the leads from the back to the generator pocket and attached the leads to the generator. Impedances were checked and found to be okay. Both incisions were then irrigated with antibiotic solution. Both incisions were then closed with 2-0 Vicryl and teto. Patient tolerated the procedure well with no complications. Patient was programmed by the [employer] sales and service representative with good stimulation in all areas of pain. Patient was discharged home neurologic intact with good relief of pain symptoms. Plan and disposition: We will follow-up with this patient in 1 week for wound check and reprogram. Will follow-up in 2 to 3 weeks for staple removal. Condition: stable Disposition: PACU Complications:: None
== END 2023-11-28 13:03 | disposition home or self-care (01) ==
PROVIDERS: PCP Family Medicine; Visit Provider Anesthesiology
PROC: (CPT 63685; principal; 2023-11-28 10:30)
DX: M51.16 Intervertebral disc disorders with radiculopathy, lumbar region (principal)
CPT/HCPCS: 63685; 63650 ×2; 80048; 85025; 96374; C1778; C1820; J3370

== ENCOUNTER 2023-12-06 09:16 | Outpatient (POV) | payer BC, OTHER, SELFPAY ==
[2023-12-06 09:33] VITALS: BP 140/77; PULSE 72; RESP 18; O2SAT 100
--- NOTE | 2023-12-06 10:02 | A.OFFVIS_ITS ---
[facility] Pain Management SOAP Note Subjective:: Patient is a pleasant 48-year-old female who presents today for 1 week postop of spinal cord stimulator implant on 11/28/2023. Today she rates her pain an 8 out of 10. Patient does state that she has some incisional pain with itching in and around the incision sites. Patient denies any new trauma or injury. She does state that she feels like she is experiencing a fibro flareup. Patient denies any problems with her stimulator and states that she is scheduled to meet [employer] customer service representative on Monday for additional reprogramming. Patient does state that she has been experiencing some random pains in and around her left low back. Patient states that she feels like she may be sleeping differently due to the incisions and might be causing this pain. Her Vasquez has been reviewed and is appropriate. Review of Systems: General: No recent weight changes, no fever, no sleep disturbances Respiratory: No cough, no shortness of air, no recurring pulmonary infections Cardiovascular/peripheral vascular: No chest pain, no palpitations, no edema, no shortness of breath Gastrointestinal: No new onset incontinence, normal bowel movements reported Genitourinary: No new onset incontinence Musculoskeletal: Low back pain Psychiatric: [Normal mood/affect] Neurological: [Denies weakness in extremities], [denies balance issues] Objective:: Physical Exam: General: Alert and oriented x3, no acute distress, pleasant and cooperative Lungs: Respirations even and unlabored, symmetrical chest expansion Eyes: PERRL Musculoskeletal: Flexion and extension of lumbar [spine] somewhat guarded secondary to pain, [antalgic gait noted] Neurological: Speech clear, no gross sensory deficit Skin: Incision sites are clean, dry, well-approximated with mild erythema at the right lateral incision, teto intact Assessment:: Degenerative disc disease of lumbar spine with lumbar radiculopathy symptoms, lumbar facet arthropathy, lumbar spondylosis, fibromyalgia Plan:: Patient was instructed to continue her full 6-week postop restrictions of minimal bending, lifting or twisting, no submerging in water until her incisions are fully healed and to continue to wear her abdominal binder to prevent seroma formation. I have counseled the patient at her next visit we will plan on taking out her teto starting with every other week. Patient acknowledges understanding. I have discussed with the patient that she can use her compounded cream along her low back at the left side where she is experiencing a little bit more pain. Patient will return to clinic in 2 weeks for reevaluation of symptoms and plan of care. I have also discussed with the patient that it may be beneficial in future to get back on medications such as the Cymbalta and pregabalin to help treat her fibromyalgia on a regular basis. We will follow-up with this at future visits. Patient has been instructed to contact the clinic with any concerns before the next appointment. Dr. Morales has reviewed this note and agrees with this plan of care. This note was dictated using voice recognition software and make contain errors or omissions. [facility] Disclaimer: The information contained in this section may have been updated after the patient was seen, as this information can be updated by other users. Medical History Perimenopausal vasomotor symptoms Anxiety HLD (hyperlipidemia) Migraines HTN (hypertension) GERD (gastroesophageal reflux disease) Vitamin D deficiency Hypothyroidism Fibromyalgia Surgical History [place] teeth removed History of colonoscopy H/O: hysterectomy Hx of cholecystectomy H/O: Family History Other Afib Coronary artery disease Hyperlipidemia Hypothyroidism Social History Smoking Status: Former smoker alcohol intake: never substance use type: denies use current occupational status: employed Travel in the last 8 weeks: None
== END 2023-12-06 23:59 ==
LOC: SC.PAIN 09:16
PROVIDERS: PCP Family Medicine; Visit Provider Nurse Practitioner Family
DX: M51.16 Intervertebral disc disorders with radiculopathy, lumbar region (principal); M47.26 Other spondylosis with radiculopathy, lumbar region; M79.7 Fibromyalgia
CPT/HCPCS: 99212; G0463

== ENCOUNTER 2023-12-25 09:16 | Outpatient (POV) | payer BC, OTHER, SELFPAY ==
--- NOTE | 2023-12-25 09:54 | A.OFFVIS_ITS ---
[facility] Pain Management SOAP Note Subjective:: Patient is a pleasant 48-year-old female who presents today for follow-up. Today she rates her pain at a 5 out of 10. Patient denies any new trauma or injury. She does state that overall she has been doing well with her [employer] stimulator and feels like the programming is working. Patient states she is having a little bit more pain today however it is manageable. Patient does state that she has had a little difficulty coordinating with the representatives to meet for reprogramming and the last one she did go to the [facility] location which worked out fine. Patient does states she still continuing her postop restrictions and using her abdominal binder that does help add support. She states that she still had had some incisional pain however today it is better. She is prescribed tramadol from her primary care provider. Her Vasquez has been reviewed and is appropriate. Review of Systems: General: No recent weight changes, no fever, no sleep disturbances Respiratory: No cough, no shortness of air, no recurring pulmonary infections Cardiovascular/peripheral vascular: No chest pain, no palpitations, no edema, no shortness of breath Gastrointestinal: No new onset incontinence, normal bowel movements reported Genitourinary: No new onset incontinence Musculoskeletal: Low back pain Psychiatric: [Normal mood/affect] Neurological: [Denies weakness in extremities], [denies balance issues] Objective:: Physical Exam: General: Alert and oriented x3, no acute distress, pleasant and cooperative Lungs: Respirations even and unlabored, symmetrical chest expansion Eyes: PERRL Musculoskeletal: Flexion and extension of lumbar [spine] somewhat guarded secondary to pain, [antalgic gait noted] Neurological: Speech clear, no gross sensory deficit Skin: Incision sites are clean, dry with no erythema noted teto intact Assessment:: Degenerative disc disease of lumbar spine with lumbar radiculopathy symptoms, lumbar facet arthropathy, lumbar spondylosis, fibromyalgia Plan:: Patient is doing well currently with her stimulator programming. Patient's incisions are healing well and we did take out all of her teto today. Patient has been counseled to continue her full 6-week postop restrictions. Patient acknowledges understanding and agrees with this plan of care. Patient will return to clinic in 1 month for reevaluation of symptoms and plan of care. Patient has been instructed to contact the clinic with any concerns before the next appointment. Dr. Morales has reviewed this note and agrees with this plan of care. This note was dictated using voice recognition software and make contain errors or omissions. [facility] Disclaimer: The information contained in this section may have been updated after the patient was seen, as this information can be updated by other users. Medical History Perimenopausal vasomotor symptoms Anxiety HLD (hyperlipidemia) Migraines HTN (hypertension) GERD (gastroesophageal reflux disease) Vitamin D deficiency Hypothyroidism Fibromyalgia Surgical History [place] teeth removed History of colonoscopy H/O: hysterectomy Hx of cholecystectomy H/O: Family History Other Afib Coronary artery disease Hyperlipidemia Hypothyroidism Social History Smoking Status: Former smoker alcohol intake: never substance use type: denies use current occupational status: employed Travel in the last 8 weeks: None
[2023-12-25 10:46] VITALS: BP 136/95; PULSE 87; RESP 18; TEMP 36.6; O2SAT 98
== END 2023-12-25 23:59 | disposition home or self-care (01) ==
LOC: SC.PAIN 09:17
PROVIDERS: PCP Family Medicine; Visit Provider Nurse Practitioner Family
DX: M51.16 Intervertebral disc disorders with radiculopathy, lumbar region (principal); M47.26 Other spondylosis with radiculopathy, lumbar region; M79.7 Fibromyalgia; Z96.82 Presence of neurostimulator
CPT/HCPCS: 99212; 99213; G0463

== ENCOUNTER 2024-01-01 12:59 | Outpatient (POV) | payer BC, OTHER, SELFPAY ==
--- NOTE | 2024-01-01 13:20 | A.OFFVIS_ITS ---
[facility] Pain Management SOAP Note Subjective:: Patient is a pleasant 48-year-old female who presents today for follow-up. She rates her pain today as 7 out of 10. Patient denies any new trauma or injury. She does state that she felt like her midline incision with certain positioning that she feels like it sticks out a little bit more. Patient states that she just wanted to make sure that there was nothing going on to be of concern for. Patient does state that she met with the [employer] representative and felt like the programming was better however she has had a flareup of her fibro as well as still trying to regulate her thyroid and thinks she may be perimenopausal. Patient does state that the combination just seems to make this week be worse overall. Her Vasquez has been reviewed and is appropriate. Review of Systems: General: No recent weight changes, no fever, no sleep disturbances Respiratory: No cough, no shortness of air, no recurring pulmonary infections Cardiovascular/peripheral vascular: No chest pain, no palpitations, no edema, no shortness of breath Gastrointestinal: No new onset incontinence, normal bowel movements reported Genitourinary: No new onset incontinence Musculoskeletal: Low back pain Psychiatric: [Normal mood/affect] Neurological: [Denies weakness in extremities], [denies balance issues] Objective:: Physical Exam: General: Alert and oriented x3, no acute distress, pleasant and cooperative Lungs: Respirations even and unlabored, symmetrical chest expansion Eyes: PERRL Musculoskeletal: Flexion and extension of lumbar [spine] somewhat guarded secondary to pain, [antalgic gait noted] Neurological: Speech clear, no gross sensory deficit Skin: Incisions are clean, dry, well-approximated with her midline incision fully healed and the lateral incision has 1 area with some slight scabbing Assessment:: Degenerative disc disease of lumbar spine with lumbar radiculopathy symptoms, fibromyalgia, lumbar facet arthropathy, lumbar spondylosis Plan:: I have counseled the patient that her incisions look great with no concerns. Patient is feeling movement of her anchor in the midline incision. Patient does have some tenderness with palpation around this site. I have counseled the patient to try her compounded cream on this location now that it is fully healed. I have also discussed with the patient in future we could try trigger point injections if this does not get better with the sensitivity. Patient acknowledges understanding and agrees with this plan of care. Patient already has her scheduled follow-up at the end of December and we will keep this appointment in place for reevaluation of symptoms and plan of care. Patient has been instructed to contact the clinic with any concerns before the next appointment. Dr. Morales has reviewed this note and agrees with this plan of care. This note was dictated using voice recognition software and make contain errors or omissions. [facility] Disclaimer: The information contained in this section may have been updated after the patient was seen, as this information can be updated by other users. Medical History Perimenopausal vasomotor symptoms Anxiety HLD (hyperlipidemia) Migraines HTN (hypertension) GERD (gastroesophageal reflux disease) Vitamin D deficiency Hypothyroidism Fibromyalgia Surgical History [place] teeth removed History of colonoscopy H/O: hysterectomy Hx of cholecystectomy H/O: Family History Other Afib Coronary artery disease Hyperlipidemia Hypothyroidism Social History Smoking Status: Former smoker alcohol intake: never substance use type: denies use current occupational status: other Travel in the last 8 weeks: None
[2024-01-01 13:22] VITALS: BP 118/87; PULSE 104; RESP 18; TEMP 36.8; O2SAT 98
== END 2024-01-01 23:59 | disposition home or self-care (01) ==
LOC: SC.PAIN 12:59
PROVIDERS: PCP Family Medicine; Visit Provider Nurse Practitioner Family
DX: M51.16 Intervertebral disc disorders with radiculopathy, lumbar region (principal); M79.7 Fibromyalgia; M47.26 Other spondylosis with radiculopathy, lumbar region
CPT/HCPCS: 99212; G0463

== ENCOUNTER 2024-01-18 09:29 | Outpatient (POV) | payer BC, OTHER, SELFPAY ==
[2024-01-18 09:47] VITALS: BP 109/80; PULSE 102; RESP 16; O2SAT 100
--- NOTE | 2024-01-18 09:55 | EXP.PAIN.SOA ---
[facility] Pain Management SOAP Note Subjective:: Patient is a pleasant 48-year-old female who presents today for follow-up. Today she rates her pain a 4 out of 10. Patient denies any new trauma or injury. She does state that today is a better day. Patient did meet with [employer] sales representative girls[employer] on Monday and was reprogrammed and feels like that combination is doing much better than the prior 1. She does state that when they reprogram there was 1 area that possibly may have moved in regard to the leads. Patient states that the sales representative [employer] did talk about possibly having imaging to verify placement. Patient is prescribed tramadol from outside provider and compounded cream from our office. Her Vasquez is reviewed and is appropriate. Review of Systems: General: No recent weight changes, no fever, no sleep disturbances Respiratory: No cough, no shortness of air, no recurring pulmonary infections Cardiovascular/peripheral vascular: No chest pain, no palpitations, no edema, no shortness of breath Gastrointestinal: No new onset incontinence, normal bowel movements reported Genitourinary: No new onset incontinence Musculoskeletal: Low back pain, low back pain Psychiatric: [Normal mood/affect] Neurological: [Denies weakness in extremities], [denies balance issues] Objective:: Physical Exam: General: Alert and oriented x3, no acute distress, pleasant and cooperative Lungs: Respirations even and unlabored, symmetrical chest expansion Eyes: PERRL Musculoskeletal: Flexion and extension of lumbar [spine] somewhat guarded secondary to pain, [antalgic gait noted] Neurological: Speech clear, no gross sensory deficit CLINICAL HISTORY: LBP,CHECK LEAD PLACEMENT FINDINGS: There is no fracture present. Thoracic stimulator leads are seen with the most proximal residing at the T8 level. There is minimal thoracic scoliosis convex to the left. IMPRESSION: Thoracic stimulator leads residing at the T8 level. Reviewed, Interpreted and Dictated by Ko Dumont MD Transcribed by Magui Gibbs Authenticated and . [facility] Assessment:: Degenerative disc disease of lumbar spine with lumbar radiculopathy symptoms, lumbar facet arthropathy, lumbar spondylosis Plan:: I have counseled the patient that she is completely cleared out of her 6-week postop restrictions. I will go ahead and order an x-ray of her thoracic spine to verify lead placement or possible movement. Patient is doing better with the current programming and we will follow-up with her in 3 months. I have counseled her if there is lead migration then we will contact her and let her know this sooner. Patient acknowledges understanding and agrees with plan of care. Patient has been instructed to contact the clinic with any concerns before the next appointment. Dr. Morales has reviewed this note and agrees with this plan of care. This note was dictated using voice recognition software and make contain errors or omissions. [facility] Disclaimer: The information contained in this section may have been updated after the patient was seen, as this information can be updated by other users. Medical History Perimenopausal vasomotor symptoms Anxiety HLD (hyperlipidemia) Migraines HTN (hypertension) GERD (gastroesophageal reflux disease) Vitamin D deficiency Hypothyroidism Fibromyalgia Surgical History [place] teeth removed History of colonoscopy H/O: hysterectomy Hx of cholecystectomy H/O: Family History Other Afib Coronary artery disease Hyperlipidemia Hypothyroidism Social History Smoking Status: Former smoker alcohol intake: never substance use type: denies use current occupational status: other Travel in the last 8 weeks: None
== END 2024-01-18 23:59 | disposition home or self-care (01) ==
LOC: SC.PAIN 09:29
PROVIDERS: PCP Family Medicine; Visit Provider Nurse Practitioner Family
DX: M51.16 Intervertebral disc disorders with radiculopathy, lumbar region (principal); M47.26 Other spondylosis with radiculopathy, lumbar region; Z96.82 Presence of neurostimulator
CPT/HCPCS: 99212; G0463

== ENCOUNTER 2024-01-18 10:11 | Outpatient (CLI) | payer BC, OTHER, SELFPAY ==
--- NOTE | 2024-01-18 10:16 | XR_ITS ---
FINAL REPORT TECHNIQUE: 2 views CLINICAL HISTORY: LBP,CHECK LEAD PLACEMENT FINDINGS: There is no fracture present. Thoracic stimulator leads are seen with the most proximal residing at the T8 level. There is minimal thoracic scoliosis convex to the left. IMPRESSION: Thoracic stimulator leads residing at the T8 level. Reviewed, Interpreted and Dictated by Ko Dumont MD Transcribed by Magui Gibbs Authenticated and [facility]
== END 2024-01-18 23:59 | disposition home or self-care (01) ==
LOC: RAD 10:12
PROVIDERS: PCP Family Medicine; Visit Provider Nurse Practitioner Family
DX: M54.6 Pain in thoracic spine (principal); M54.50 Low back pain, unspecified
CPT/HCPCS: 72072

== ENCOUNTER 2024-02-08 09:40 | Outpatient (POV) | payer BC, OTHER, SELFPAY ==
[2024-02-08 11:00] VITALS: BP 122/81; PULSE 88; RESP 18; O2SAT 100; BMI 19.1
--- NOTE | 2024-02-08 12:15 | EXP.PAIN.SOA ---
[facility] Pain Management SOAP Note Subjective:: Patient is a pleasant 48-year-old female who presents today for follow-up of x-ray imaging of her thoracic spine. Today she rates her pain at a 5 out of 10. Patient denies any new trauma or injury. She does state that the pain is still throughout her low back and into more so her right hip as well as more mid back pain. Patient states that she has not had any new trauma or injury however still continues to have that chronic pain. Patient states that the pain is constant and that she has actually been having her stimulator off for the most part because it seems to aggravate that mid back pain. Patient did have her device reprogrammed multiple times by [employer] branch sales and service representative and the last one was told that there was believed that they really could not communicate with stating it possibly was not in the same position. Patient did have prior lumbar image on a lot of her symptoms with the stimulator. She is prescribed tramadol from outside provider and compounded cream from our office. Patient states she typically takes her tramadol half a tablet in the morning half during lunchtime and half at bedtime. She feels like that she can do more in the mornings but come time around lunch she completely has to stop what she is doing and rest due to the worsening pain symptoms. Patient is interested in any help we may be able to provide. Her Vasquez has been reviewed and is appropriate. Review of Systems: General: No recent weight changes, no fever, no sleep disturbances Respiratory: No cough, no shortness of air, no recurring pulmonary infections Cardiovascular/peripheral vascular: No chest pain, no palpitations, no edema, no shortness of breath Gastrointestinal: No new onset incontinence, normal bowel movements reported Genitourinary: No new onset incontinence Musculoskeletal: Mid back pain, low back pain, right hip pain Psychiatric: [Normal mood/affect] Neurological: [Denies weakness in extremities], [denies balance issues] Objective:: Physical Exam: General: Alert and oriented x3, no acute distress, pleasant and cooperative Lungs: Respirations even and unlabored, symmetrical chest expansion Eyes: PERRL Musculoskeletal: Flexion and extension of thoracic [spine] somewhat guarded secondary to pain, [antalgic gait noted] Neurological: Speech clear, no gross sensory deficit Assessment:: Degenerative disc disease of lumbar spine with lumbar radiculopathy symptoms, lumbar facet arthropathy, lumbar spondylosis, mid back pain Plan:: I have counseled the patient due to the worsening back pain with limited range of motion that it may be related to her lead having moved. Patient was counseled that I will order MRI without contrast of her thoracic spine to rule out any additional changes. I have also discussed with the patient due to her lead migration and that I do believe that she would be a beneficial candidate of a paddle lead and I am recommending referral to neurosurgery. Patient is agreeable to this plan of care. I have discussed with the patient that I would recommend trying her current tramadol prescription with a full tablet at or around lunch where she feels like her pain is most frequently occurring. Patient is agreeable to this option. I have discussed with patient to really think through the different options she may have regarding having her stimulator revised due to movement. Patient agrees with this plan of care. She will return to clinic in 1 month for reevaluation of symptoms and plan of care. Patient has been instructed to contact the clinic with any concerns before the next appointment. Dr. Morales has reviewed this note and agrees with this plan of care. This note was dictated using voice recognition software and make contain errors or omissions. [facility] Disclaimer: The information contained in this section may have been updated after the patient was seen, as this information can be updated by other users. Medical History Perimenopausal vasomotor symptoms Anxiety HLD (hyperlipidemia) Migraines HTN (hypertension) GERD (gastroesophageal reflux disease) Vitamin D deficiency Hypothyroidism Fibromyalgia Surgical History [place] teeth removed History of colonoscopy H/O: hysterectomy Hx of cholecystectomy H/O: Family History Other Afib Coronary artery disease Hyperlipidemia Hypothyroidism Social History Smoking Status: Former smoker alcohol intake: never substance use type: denies use current occupational status: other Travel in the last 8 weeks: None
== END 2024-02-08 23:59 | disposition home or self-care (01) ==
LOC: SC.PAIN 09:41
PROVIDERS: PCP Family Medicine; Visit Provider Nurse Practitioner Family
DX: M51.16 Intervertebral disc disorders with radiculopathy, lumbar region (principal); M47.26 Other spondylosis with radiculopathy, lumbar region; T85.122D Displacement of implanted electronic neurostimulator of spinal cord electrode (lead), subsequent encounter
CPT/HCPCS: 99212; G0463

== ENCOUNTER 2024-03-07 08:37 | Outpatient (POV) | payer BC, OTHER, SELFPAY ==
[2024-03-07 08:57] VITALS: BP 122/78; PULSE 91; RESP 18; O2SAT 96; BMI 19.1
--- NOTE | 2024-03-07 09:44 | EXP.PAIN.SOA ---
[facility] Disclaimer: The information contained in this section may have been updated after the patient was seen, as this information can be updated by other users. Medical History Perimenopausal vasomotor symptoms Anxiety HLD (hyperlipidemia) Migraines HTN (hypertension) GERD (gastroesophageal reflux disease) Vitamin D deficiency Hypothyroidism Fibromyalgia Surgical History [place] teeth removed History of colonoscopy H/O: hysterectomy Hx of cholecystectomy H/O: Family History Other Afib Coronary artery disease Hyperlipidemia Hypothyroidism Social History Smoking Status: Former smoker alcohol intake: never substance use type: denies use current occupational status: employed Travel in the last 8 weeks: None PM Subjective & Objective Subjective Subjective:: Patient is a pleasant 49-year-old female who presents today for follow-up of thoracic MRI. Today she rates her pain a 6 out of 10. Patient states she continues to have mid back pain as well as her original pains in her low back and legs and other joints due to fibromyalgia. Patient does state from her last visit that she did hear from Dr. Cardona's office however at that time when they called she stated that she was not quite sure she wanted to proceed forward with this and did not get the appointment made. Patient is prescribed tramadol 50 mg twice a day and states this does help and denies any side effects. Patient is also prescribed compounded cream. Her Vasquez has been reviewed and is appropriate. Review of Systems: General: No recent weight changes, no fever, no sleep disturbances Respiratory: No cough, no shortness of air, no recurring pulmonary infections Cardiovascular/peripheral vascular: No chest pain, no palpitations, no edema, no shortness of breath Gastrointestinal: No new onset incontinence, normal bowel movements reported Genitourinary: No new onset incontinence Musculoskeletal: Low back pain, mid back pain Psychiatric: [Normal mood/affect] Neurological: [Denies weakness in extremities], [denies balance issues] Pain at rest (0-10 scale): 6 Objective Objective:: Physical Exam: General: Alert and oriented x3, no acute distress, pleasant and cooperative Lungs: Respirations even and unlabored, symmetrical chest expansion Eyes: PERRL Musculoskeletal: Flexion and extension of thoracic [spine] somewhat guarded secondary to pain, [antalgic gait noted] Neurological: Speech clear, no gross sensory deficit Has patient had previous pain injection?: No Conservative treatment options previously tried: Home exercise plan Length of treatment: Longer than 6 weeks and Prescription medications Length of treatment: Longer than 6 weeks Meds Home Medications and Allergies Home Medications Medication Instructions Recorded Confirmed Type galcanezumab-gnlm 120 mg/mL 120 mg SQ QMONTH . 03/20/23 03/07/24 History subcutaneous pen injector (Emgality Pen) loratadine 10 mg tablet 10 mg PO DAILY . 03/20/23 03/07/24 History levothyroxine 50 mcg capsule 50 mcg PO DAILY THYROID 04/17/23 03/07/24 History atorvastatin 20 mg tablet 20 mg PO DAILY 10/06/23 03/07/24 History pantoprazole 40 mg tablet,delayed 40 mg PO DAILY 10/06/23 03/07/24 History release estradiol 1 mg tablet 1 mg PO DAILY #90 tabs 10/24/23 03/07/24 Rx sacrosidase 8,500 unit/mL oral 8,500 unit PO DAILY 11/27/23 03/07/24 History solution (Sucraid) tramadol 50 mg tablet 50 mg PO BID PRN pain #60 tabs 02/22/24 03/07/24 Rx New Prescriptions to Start Prescriptions: Allergies Allergy/AdvReac Type Severity Reaction Status Date / Time Tetracyclines Allergy Verified 11/28/23 09:14 Assessment and Plan *Assessment and plan (1) Lumbar radiculopathy: Status: Acute Category: Medical Code(s): M54.16 - Radiculopathy, lumbar region (2) Degenerative disc disease, lumbar: Status: Acute Category: Medical Code(s): M51.36 - Other intervertebral disc degeneration, lumbar region (3) Low back pain: Status: Acute Qualifiers: Chronicity: chronic Back pain laterality: bilateral Sciatica presence: unspecified whether sciatica present Qualified Code(s): M54.50 - Low back pain, unspecified; G89.29 - Other chronic pain Category: Medical Code(s): M54.50 - Low back pain, unspecified (4) Mid back pain: Status: Acute Category: Medical Code(s): M54.9 - Dorsalgia, unspecified Plan Patient is still experiencing significant pain in multiple areas and does have lead migration with one of her thoracic leads on her spinal cord stimulator. I have gone back over the risk and benefits of proceeding forward with the paddle leads of her spinal cord stimulator. I have counseled the patient that I would recommend her at least to go in here with Dr. Russell recommendations were and to go over the risk and benefits of the paddle lead before deciding 1 where the other. I will send in a 3-month supply of the tramadol and have the patient follow back up in 1 month for reevaluation of symptoms and plan of care. Patient is agreeable to this option. Patient has been instructed to contact the clinic with any concerns before the next appointment. Dr. Morales has reviewed this note and agrees with this plan of care. This note was dictated using voice recognition software and make contain errors or omissions.
== END 2024-03-07 23:59 | disposition home or self-care (01) ==
PROVIDERS: PCP Family Medicine; Visit Provider Nurse Practitioner Family
DX: M51.16 Intervertebral disc disorders with radiculopathy, lumbar region (principal); M54.50 Low back pain, unspecified; G89.29 Other chronic pain; M54.9 Dorsalgia, unspecified; Z96.82 Presence of neurostimulator; Z87.891 Personal history of nicotine dependence; Z79.899 Other long term (current) drug therapy
CPT/HCPCS: 99212; G0463

== ENCOUNTER 2024-04-18 09:42 | Outpatient (CLI) | payer BC, OTHER, SELFPAY ==
[2024-04-18 10:31] LABS: Basophils # 0.1 K/mm3 (0-0.2); Basophils % 1.3 % (0.1-2.0); Eosinophils # 0.1 K/mm3 (0.0-0.4); Eosinophils % 3.1 % (0.1-12.0); Hematocrit 45.1 % (37.0-47.0); Hemoglobin 14.2 g/dL (12.2-16.2); Lymphocytes # 1.4 K/mm3 (0.7-4.5); Lymphocytes % 28.9 % (10-50); Mean Corpuscular HGB Conc 31.6 g/dL (31.8-35.4); Mean Corpuscular Hemoglobin 30.9 pg (27.0-31.2); Mean Corpuscular Volume 97.9 fl (81-99); Mean Platelet Volume 7.9 fl (7.4-10.4); Monocytes # 0.2 K/mm3 (0.1-1.0); Neutrophils # 2.9 K/mm3 (1.8-7.8); Neutrophils % 61.7 % (37.0-80.0); Platelet Count 290 K/mm3 (142-424); Red Blood Count 4.61 M/mm3 (4.20-5.40); Red Cell Distribution Width 13.6 % (11.5-17.5); White Blood Count 4.7 K/mm3 (4.8-10.8)
[2024-04-18 11:19] LABS: Blood Urea Nitrogen 12 mg/dl (7-17); Calcium 9.7 mg/dl (8.4-10.2); Carbon Dioxide 32 mmol/L (22.0-30.0); Chloride 102 mmol/L (98-107); Estimated Glomerular Filt Rate 77 ml/min (>60); GFR (African American) 93 ML/MIN (>60); Glucose 84 mg/dl (74-100); Sodium 140 mmol/L (136-145)
== END 2024-04-18 23:59 | disposition home or self-care (01) ==
LOC: LAB 09:43
PROVIDERS: PCP Family Medicine; Visit Provider Anesthesiology
DX: Z01.818 Encounter for other preprocedural examination (principal); Z45.89 Encounter for adjustment and management of other implanted devices
CPT/HCPCS: 36415; 80048; 85025

== ENCOUNTER 2024-04-19 07:01 | Day surgery (SDC) | payer BC, OTHER, SELFPAY ==
[2024-04-16 09:55] VITALS: BMI 19.1
[2024-04-19 07:18] VITALS: BP 113/77; PULSE 75; RESP 18; TEMP 36.1; O2SAT 99
[2024-04-19] MEDS: LACTATED RINGERS 1000ML 1,000 ML 25 ML IV (07:28)
[2024-04-19] MEDS: VANCOMYCIN HCL 1,000 MG in 0.9 % SODIUM CHLORIDE 250 ML 125 MG IV (07:46)
[2024-04-19] MEDS: SODIUM CHLORIDE 0.9% 20ML VIAL 20 ML IV ×2 (09:06)
[2024-04-19] MEDS: LIDOCAINE 1% W/EPI 1:100,000 20ML VIAL 20 ML (09:06)
[2024-04-19] MEDS: GENTAMICIN 80 MG/2 ML VIAL (09:06)
[2024-04-19 09:44] VITALS: BP 84/56; PULSE 68; RESP 14; TEMP 36.3; O2SAT 100
[2024-04-19 09:54] VITALS: BP 114/44; PULSE 80; RESP 16; O2SAT 100
[2024-04-19 10:04] VITALS: BP 108/86; PULSE 71; RESP 18; O2SAT 100
[2024-04-19 10:14] VITALS: BP 135/77; PULSE 67; RESP 16; TEMP 36.7; O2SAT 100
--- NOTE | 2024-05-10 08:44 | P.OP_ITS ---
Date of procedure: 04/19/24 Pre-op Diagnosis:: Nonfunctioning spinal cord stimulator Post-op Diagnosis:: Same Procedure performed:: Explant of spinal cord stimulator leads and battery Surgeon:: Saman Morales MD [employer]BONATION EQUIPMENT OPERATOR:: Angie Treadwell Anesthesia: MAC Estimated blood loss (mL): 5 Clinical Note:: This patient is a pleasant 49-year-old white female who has a [employer] spinal cord stimulator system in place. She is not getting any relief with her system and it is causing more pain with placement of the battery. We will explant her generator and leads today. Operative findings:: None Operative note:: Informed consent was obtained risk and benefits of the procedure were explained to the patient. The patient was taken the operating room placed prone on the procedure table. She was prepped and draped in sterile fashion. C-arm fluoroscopy was used to view the leads and generator. The skin and subtenons tissues overlying the generator was anesthetized using lidocaine. The skin and subcutaneous tissues overlying the lead anchors were anesthetized using lidocaine. We made an incision over the stimulator generator. I explanted the stimulator generator. I disconnected the leads. I then made an incision over the lead anchors. I dissected out the lead anchors and remove the lead anchors and leads. We did document removal of all leads and generator with C arm fluoroscopy. Both incisions were then closed with 2-0 Vicryl followed by 4 nylon and teto. Patient tolerated the procedure well with no complications. Patient was discharged home neurologic intact with good relief of pain symptoms. Plan and disposition: Will follow-up with this patient in 1 week for wound check. Will follow-up in 2 to 3 weeks for suture and staple removal. Condition: stable Disposition: PACU Complications:: None
== END 2024-04-19 10:30 | disposition home or self-care (01) ==
PROVIDERS: PCP Family Medicine; Visit Provider Anesthesiology
PROC: (CPT 63661; principal; 2024-04-19 08:30)
DX: T85.112A Breakdown (mechanical) of implanted electronic neurostimulator of spinal cord electrode (lead), initial encounter (principal); M51.16 Intervertebral disc disorders with radiculopathy, lumbar region; M54.50 Low back pain, unspecified; Y83.1 Surgical operation with implant of artificial internal device as the cause of abnormal reaction of the patient, or of later complication, without mention of misadventure at the time of the procedure
CPT/HCPCS: 63661; 63688; 96374; J1580; J3370; J7050; J7120

== ENCOUNTER 2024-04-25 13:31 | Outpatient (POV) | payer BC, OTHER, SELFPAY ==
[2024-04-25 13:52] VITALS: BP 121/79; PULSE 79; RESP 18; O2SAT 99; BMI 18.3
--- NOTE | 2024-04-25 14:01 | EXP.PAIN.SOA ---
[facility] Disclaimer: The information contained in this section may have been updated after the patient was seen, as this information can be updated by other users. Medical History Neurostimulator device in situ Perimenopausal vasomotor symptoms Anxiety HLD (hyperlipidemia) Migraines GERD (gastroesophageal reflux disease) Vitamin D deficiency Hypothyroidism Fibromyalgia Surgical History [place] teeth removed History of colonoscopy H/O: hysterectomy has ovaries Hx of cholecystectomy H/O: Family History Other Afib Coronary artery disease Hyperlipidemia Hypothyroidism Social History (Updated 04/19/24 @ 07:27 by Gayb Bunch RN) Smoking Status: Former smoker alcohol intake: never substance use type: denies use current occupational status: employed Travel in the last 8 weeks: None PM Subjective & Objective Subjective Subjective:: Patient is a pleasant 49-year-old female who presents today for follow-up spinal cord stimulator removal. Today she rates her pain a 3 out of 10. Patient does state that she is doing well following this procedure. She states she continues to have chronic pain related to her fibromyalgia. Patient does state that she is going to lose her insurance at the end of this month and is hoping whether or not her sister who is an RN here at the hospital would be able to possibly take out her sutures. Patient states otherwise she would have to get insurance for that very short period of time through [employer] and it would be about the thousand dollars. Patient is prescribed tramadol 50 mg twice a day and states this does help and denies any side effects. Patient is also prescribed compounded cream. She is fixing to relocate to see if the weather change improves her overall pain symptoms. Her Vasquez has been reviewed and is appropriate. Review of Systems: General: No recent weight changes, no fever, no sleep disturbances Respiratory: No cough, no shortness of air, no recurring pulmonary infections Cardiovascular/peripheral vascular: No chest pain, no palpitations, no edema, no shortness of breath Gastrointestinal: No new onset incontinence, normal bowel movements reported Genitourinary: No new onset incontinence Musculoskeletal: Low back pain, mid back pain Psychiatric: [Normal mood/affect] Neurological: [Denies weakness in extremities], [denies balance issues] Pain at rest (0-10 scale): 3 Objective Objective:: Physical Exam: General: Alert and oriented x3, no acute distress, pleasant and cooperative Lungs: Respirations even and unlabored, symmetrical chest expansion Eyes: PERRL Musculoskeletal: Flexion and extension of lumbar [spine] somewhat guarded secondary to pain, [antalgic gait noted] Neurological: Speech clear, no gross sensory deficit Has patient had previous pain injection?: No Conservative treatment options previously tried: Home exercise plan Length of treatment: Longer than 6 weeks Meds Home Medications and Allergies Home Medications ?Medication ?Instructions ?Recorded ?Confirmed ?Type galcanezumab-gnlm 120 mg/mL 120 mg SQ QMONTH . 03/20/23 04/25/24 History subcutaneous pen injector (Emgality Pen) loratadine 10 mg tablet 10 mg PO DAILY . 03/20/23 04/25/24 History atorvastatin 20 mg tablet 20 mg PO DAILY 10/06/23 04/25/24 History pantoprazole 40 mg tablet,delayed 40 mg PO DAILY 10/06/23 04/25/24 History release sacrosidase 8,500 unit/mL oral 8,500 unit PO DAILY 11/27/23 04/25/24 History solution (Sucraid) estradiol 1 mg tablet 1 mg PO ONCE #90 tabs 04/18/24 04/25/24 Rx levothyroxine 88 mcg tablet 88 mcg PO DAILY 04/18/24 04/25/24 History tramadol 50 mg tablet 25 mg PO BID PRN pain 04/19/24 04/25/24 History New Prescriptions to Start Prescriptions: Allergies Allergy/AdvReac Type Severity Reaction Status Date / Time Sulfa (Sulfonamide Allergy Verified 04/19/24 07:15 Antibiotics) Tetracyclines Allergy Verified 04/19/24 07:15 Assessment and Plan *Assessment and plan (1) Lumbar radiculopathy: Status: Acute Category: Medical Code(s): M54.16 - Radiculopathy, lumbar region (2) Degenerative disc disease, lumbar: Status: Acute Category: Medical Code(s): M51.36 - Other intervertebral disc degeneration, lumbar region Plan Patient's incisions are clean, dry, well-approximated with no erythema noted. I did discuss with patient regarding having her sister who is an RN to remove the sutures and teto. She was counseled that we would prefer that our office do this as a precaution in case there is any type of infection or opening of the incision. Patient was counseled to continue her postop restrictions the full 6 weeks. She was also discussed that in future if it is an easier option we can send her to the [place] location to have the sutures and teto removed and she can pay [id number] without insurance cost. Patient will be refilled on her tramadol with a 90-day supply. Patient states that her last prescription they only gave her 30 days and she does not recall whether she has refills. Patient will return to clinic in 2 weeks for reevaluation of symptoms and plan of care. Patient has been instructed to contact the clinic with any concerns before the next appointment. Dr. Morales has reviewed this note and agrees with this plan of care. This note was dictated using voice recognition software and make contain errors or omissions. All injections are used with Lidocaine or Bupivacaine and Depo Medrol.
== END 2024-04-25 23:59 | disposition home or self-care (01) ==
PROVIDERS: PCP Family Medicine; Visit Provider Nurse Practitioner Family
DX: M51.16 Intervertebral disc disorders with radiculopathy, lumbar region (principal); Z87.891 Personal history of nicotine dependence
CPT/HCPCS: 99212; G0463